=== PATIENT | female | born 1940 | race Caucasian/White ===

== ENCOUNTER 2023-05-17 11:28 | Inpatient (IN) | payer OTHER, BC ==
[2023-05-17] MEDS ORDERED: ACETAMINOPHEN 1000 MG/100 ML BAG IVPB ONE (12:10)
[2023-05-17] MEDS ORDERED: VANCOMYCIN/WATER FOR INJ (PEG) 1,000 MG/200 ML BAG IVPB ONE (13:06)
[2023-05-17] MEDS ORDERED: ACETAMINOPHEN INJECTION 100 ML IVPB ONE (13:06)
[2023-05-17 13:25] LABS: BASO % 0.5 % (0-2.0); EOS % 5.4 % (0-4.5); HEMATOCRIT 32.3 % (32.4-45.2); HEMOGLOBIN 10.3 GM/dL (10.7-15.3); LYMPH % 21.6 % (8-40); MCH 28.1 pg (25.7-33.7); MCHC 31.8 g/dl (32.0-36.0); MEAN CELL VOLUME 88.2 fl (80-96); MEAN PLT VOLUME 8.4 fl (7.5-11.1); NEUT % 62.5 % (42.8-82.8); PLATELET COUNT 384 10^3/uL (134-434); RBC 3.66 M/mm3 (3.60-5.2); RDW 15.8 % (11.6-15.6); WHITE BLOOD COUNT 6.6 K/mm3 (4.0-10.0)
[2023-05-17] MEDS ORDERED: VANCOMYCIN 1 GM in D5W (PRE-DOCKED) 1,000 MG/250 ML (RESTRICTED TO ID ONLY IVPB ONE (13:25)
[2023-05-17 13:34] LABS: INR 1.15 (0.83-1.09); PROTHROMBIN TIME (PATIENT) 13.3 SEC (9.7-13.0)
[2023-05-17 13:39] LABS: POTASSIUM 4.4 mmol/L (3.5-5.1)
[2023-05-17 13:42] LABS: CALCIUM 10.1 mg/dL (8.5-10.1)
[2023-05-17 13:43] LABS: ALBUMIN 3.2 g/dl (3.4-5.0); BLOOD UREA NITROGEN 22.2 mg/dL (7-18); MAGNESIUM 2.3 mg/dL (1.8-2.4)
[2023-05-17 13:46] LABS: CREATININE 0.9 mg/dL (0.55-1.3)
[2023-05-17 13:47] LABS: BILIRUBIN,TOTAL 0.2 mg/dL (0.2-1); TOT PROT 6.9 g/dl (6.4-8.2)
[2023-05-17] MEDS ORDERED: morphine CARPU-JECT 2 MG/1 ML DISP.SYRIN IVPUSH ONE (14:20)
[2023-05-17] MEDS ORDERED: morphine CARPU-JECT 4 MG/1 ML DISP.SYRIN IVPUSH ONE (15:37)
[2023-05-17] MEDS ORDERED: morphine SULFATE 4 MG/ML VIAL ONE (15:38)
[2023-05-17] MEDS ORDERED: ENOXAPARIN NA (PORCINE) 80 MG/0.8 ML DISP.SYRIN SQ SCH (16:00)
[2023-05-17] MEDS: INSULIN SLIDING SCALE (NOVOLOG) 1 VIAL SQ SCH (17:05)
[2023-05-17] MEDS ORDERED: DOXYCYCLINE HYCLATE 100 MG VIAL ONE (17:11)
[2023-05-17] MEDS ORDERED: ENOXAPARIN NA (PORCINE) 80 MG/0.8 ML DISP.SYRIN SQ ONE (17:12)
[2023-05-17] MEDS: DOXYCYCLINE INJECTION 100 MG in DEXTROSE 5%-WATER 100 ML IVPB SCH (17:22)
[2023-05-17] MEDS: ENOXAPARIN NA (PORCINE) 80 MG/0.8 ML DISP.SYRIN SQ SCH (17:22)
[2023-05-17 17:44] VITALS: BMI 33.7
[2023-05-17] MEDS ORDERED: ACETAMINOPHEN 500 MG TABLET (FP) ONE ×2 (18:11→18:14)
[2023-05-17] MEDS: ACETAMINOPHEN 500 MG TABLET (FP) PO PRN (18:29)
[2023-05-17] MEDS: ATORVASTATIN CA 10 MG TABLET (FP) PO SCH (21:43)
[2023-05-18] MEDS: DOXYCYCLINE INJECTION 100 MG in DEXTROSE 5%-WATER 100 ML IVPB SCH ×2 (05:27→17:10)
[2023-05-18] MEDS: ENOXAPARIN NA (PORCINE) 80 MG/0.8 ML DISP.SYRIN SQ SCH (05:28)
[2023-05-18] MEDS: INSULIN SLIDING SCALE (NOVOLOG) 1 VIAL SQ SCH ×3 (06:29→17:06)
[2023-05-18 09:53] LABS: BASO % 0.5 % (0-2.0); EOS % 5.7 % (0-4.5); HEMATOCRIT 31.4 % (32.4-45.2); LYMPH % 19.2 % (8-40); MCH 28.2 pg (25.7-33.7); MEAN CELL VOLUME 88.4 fl (80-96); MEAN PLT VOLUME 9.2 fl (7.5-11.1); NEUT % 65.6 % (42.8-82.8); PLATELET COUNT 386 10^3/uL (134-434); RBC 3.56 M/mm3 (3.60-5.2); RDW 15.6 % (11.6-15.6); WHITE BLOOD COUNT 6.4 K/mm3 (4.0-10.0)
[2023-05-18] MEDS ORDERED: PANTOPRAZOLE 40 MG TABLET PO SCH (10:00)
[2023-05-18] MEDS ORDERED: VANCOMYCIN 1 GM in D5W (PRE-DOCKED) 1,000 MG/250 ML (RESTRICTED TO ID ONLY IVPB ONE (10:00)
[2023-05-18] MEDS ORDERED: amLODIPine BESYLATE 2.5 MG TABLET (FP) PO SCH (10:00)
[2023-05-18] MEDS ORDERED: NEBIVOLOL 10 MG TABLET (FP) PO SCH (10:00)
[2023-05-18 10:20] LABS: BLOOD UREA NITROGEN 15.3 mg/dL (7-18); CALCIUM 10.1 mg/dL (8.5-10.1)
[2023-05-18 10:23] LABS: CREATININE 0.7 mg/dL (0.55-1.3)
[2023-05-18 11:15] LABS: INR 1.19 (0.83-1.09); PROTHROMBIN TIME (PATIENT) 13.8 SEC (9.7-13.0)
[2023-05-18] MEDS: ATORVASTATIN CA 10 MG TABLET (FP) PO SCH (21:42)
[2023-05-19] MEDS: ACETAMINOPHEN 500 MG TABLET (FP) PO PRN (00:13)
[2023-05-19] MEDS ORDERED: ACETAMINOPHEN 1000 MG/100 ML BAG IVPB ONE ×2 (05:04→22:36)
[2023-05-19] MEDS: DOXYCYCLINE INJECTION 100 MG in DEXTROSE 5%-WATER 100 ML IVPB SCH ×2 (05:58→17:38)
[2023-05-19] MEDS: INSULIN SLIDING SCALE (NOVOLOG) 1 VIAL SQ SCH ×3 (06:21→17:07)
[2023-05-19] MEDS ORDERED: BUPIVACAINE HCL/PF 0.5% (5MG/ML) 10 ML VIAL ONE (07:18)
[2023-05-19] MEDS ORDERED: LIDOCAINE HCL 1%, 10 MG/ML (10ML VIAL) MDV ONE ×2 (07:18→08:26)
[2023-05-19] MEDS ORDERED: ONDANSETRON 4 MG/2 ML VIAL IVPUSH PRN ×2 (07:42→09:08)
[2023-05-19] MEDS ORDERED: KETAMINE HCL 500 MG/10 ML VIAL ONE (07:51)
[2023-05-19] MEDS ORDERED: BUPIVACAINE HCL/PF 0.5% (5 MG/ML) 30 ML VIAL IJ ONE (08:10)
[2023-05-19] MEDS ORDERED: LIDOCAINE HCL 1%, 10 MG/ML (20ML VIAL) INF ONE (08:10)
[2023-05-19] MEDS ORDERED: PROPOFOL 20 ML ONE (08:20)
[2023-05-19] MEDS ORDERED: ACETAMINOPHEN 500 MG TABLET (FP) PO PRN (09:08)
[2023-05-19] MEDS ORDERED: ACETAMINOPHEN 325 MG TABLET (FP) ONE (09:34)
[2023-05-19] MEDS: NEBIVOLOL 10 MG TABLET (FP) PO SCH (10:51)
[2023-05-19] MEDS: amLODIPine BESYLATE 2.5 MG TABLET (FP) PO SCH (10:52)
[2023-05-19] MEDS: PANTOPRAZOLE 40 MG TABLET PO SCH (10:52)
[2023-05-19] MEDS: ENOXAPARIN NA (PORCINE) 40 MG/0.4 ML DISP.SYRIN SQ SCH ×2 (11:33→22:10)
[2023-05-19] MEDS: ACETAMINOPHEN WITH CODEINE 300MG/30MG TABLET PO PRN (16:12)
[2023-05-19 16:36] VITALS: RESP 18
[2023-05-19] MEDS ORDERED: oxyCODONE HCL 5 MG TABLET PO ONE (19:24)
[2023-05-19] MEDS: ATORVASTATIN CA 10 MG TABLET (FP) PO SCH (22:10)
[2023-05-19] MEDS ORDERED: MELATONIN 5 MG TABLETS PO ONE (22:38)
[2023-05-20] MEDS ORDERED: oxyCODONE HCL 5 MG TABLET PO ONE (01:23)
[2023-05-20 04:44] LABS: PH,URINE 5.5 (5.0-8.0); URINE APPEARANCE CLEAR; URINE BILIRUBIN NEGATIVE (NEGATIVE); URINE COLOR YELLOW; URINE GLUCOSE (UA) NEGATIVE (NEGATIVE); URINE KETONE NEGATIVE (NEGATIVE); URINE LEUK ESTERASE NEGATIVE (NEGATIVE); URINE NITRITE NEGATIVE (NEGATIVE); URINE PROTEIN NEGATIVE (NEGATIVE); URINE UROBILINOGEN 0.2 mg/dL (0.2-1.0)
[2023-05-20] MEDS: DOXYCYCLINE INJECTION 100 MG in DEXTROSE 5%-WATER 100 ML IVPB SCH ×2 (05:05→18:30)
[2023-05-20] MEDS ORDERED: ACETAMINOPHEN 1000 MG/100 ML BAG IVPB PRN (06:00)
[2023-05-20] MEDS: INSULIN SLIDING SCALE (NOVOLOG) 1 VIAL SQ SCH ×3 (07:14→17:46)
[2023-05-20 09:37] LABS: HEMATOCRIT 33.1 % (32.4-45.2); HEMOGLOBIN 10.4 GM/dL (10.7-15.3); MCH 27.6 pg (25.7-33.7); MCHC 31.5 g/dl (32.0-36.0); MEAN CELL VOLUME 87.6 fl (80-96); MEAN PLT VOLUME 9.1 fl (7.5-11.1); PLATELET COUNT 409 10^3/uL (134-434); RBC 3.78 M/mm3 (3.60-5.2); RDW 16.2 % (11.6-15.6); WHITE BLOOD COUNT 7.6 K/mm3 (4.0-10.0)
[2023-05-20 10:01] LABS: POTASSIUM 4.1 mmol/L (3.5-5.1)
[2023-05-20 10:08] LABS: BLOOD UREA NITROGEN 20.3 mg/dL (7-18)
[2023-05-20 10:10] LABS: CALCIUM 10.3 mg/dL (8.5-10.1)
[2023-05-20 10:12] LABS: CREATININE 0.9 mg/dL (0.55-1.3)
[2023-05-20] MEDS: ENOXAPARIN NA (PORCINE) 80 MG/0.8 ML DISP.SYRIN SQ SCH ×2 (10:16→21:27)
[2023-05-20] MEDS: NEBIVOLOL 10 MG TABLET (FP) PO SCH (10:17)
[2023-05-20] MEDS: amLODIPine BESYLATE 2.5 MG TABLET (FP) PO SCH (10:17)
[2023-05-20] MEDS: PANTOPRAZOLE 40 MG TABLET PO SCH (10:17)
[2023-05-20] MEDS: ACETAMINOPHEN WITH CODEINE 300MG/30MG TABLET PO PRN ×2 (10:37→18:30)
[2023-05-20 10:41] LABS: ANISOCYTOSIS 0; HELMET CELLS 0; HOWELL-JOLLY BODIES 0; MACROCYTOSIS 0; OVALOCYTE 0; ROULEAU 0; SICKELED CELLS 0; TARGET CELLS 0; TEAR DROP CELLS 0; TOXIC GRANULATION 0
[2023-05-20] MEDS: ATORVASTATIN CA 10 MG TABLET (FP) PO SCH (21:27)
[2023-05-21] MEDS ORDERED: oxyCODONE HCL 5 MG TABLET PO ONE (00:38)
[2023-05-21] MEDS ORDERED: ACETAMINOPHEN 1000 MG/100 ML BAG IVPB ONE (00:40)
[2023-05-21] MEDS: DOXYCYCLINE INJECTION 100 MG in DEXTROSE 5%-WATER 100 ML IVPB SCH (05:06)
[2023-05-21] MEDS: INSULIN SLIDING SCALE (NOVOLOG) 1 VIAL SQ SCH ×3 (06:25→16:44)
[2023-05-21] MEDS: NEBIVOLOL 10 MG TABLET (FP) PO SCH (10:10)
[2023-05-21] MEDS: ENOXAPARIN NA (PORCINE) 80 MG/0.8 ML DISP.SYRIN SQ SCH ×2 (10:10→21:05)
[2023-05-21] MEDS: PANTOPRAZOLE 40 MG TABLET PO SCH (10:10)
[2023-05-21] MEDS: amLODIPine BESYLATE 5 MG TABLET (FP) PO SCH (10:10)
[2023-05-21] MEDS: ACETAMINOPHEN WITH CODEINE 300MG/30MG TABLET PO PRN ×2 (16:47→23:04)
[2023-05-21] MEDS: ATORVASTATIN CA 10 MG TABLET (FP) PO SCH (21:05)
[2023-05-22] MEDS: INSULIN SLIDING SCALE (NOVOLOG) 1 VIAL SQ SCH ×2 (06:16→12:15)
[2023-05-22] MEDS: NEBIVOLOL 10 MG TABLET (FP) PO SCH (09:57)
[2023-05-22] MEDS: amLODIPine BESYLATE 5 MG TABLET (FP) PO SCH (09:57)
[2023-05-22] MEDS: PANTOPRAZOLE 40 MG TABLET PO SCH (09:58)
[2023-05-22] MEDS: ENOXAPARIN NA (PORCINE) 80 MG/0.8 ML DISP.SYRIN SQ SCH (09:58)
[2023-05-22 13:09] VITALS: BP 155/55; PULSE 69; TEMP 98.3
== END 2023-05-22 14:34 | DRG 256 ==
LOC: JER 11:28 → JERBED 12:46 → J5S 21:07
PROVIDERS: ADMIT Internal Medicine; ATTEND Family Medicine
PROC: 0Y6P0Z1 Detachment at Right 1st Toe, High, Open Approach (ICD-10-PCS; principal; 2023-05-19 08:00)
DX: E11.52 Type 2 diabetes mellitus with diabetic peripheral angiopathy with gangrene (principal); I96 Gangrene, not elsewhere classified; L03.115 Cellulitis of right lower limb; I10 Essential (primary) hypertension; E78.5 Hyperlipidemia, unspecified; E11.621 Type 2 diabetes mellitus with foot ulcer; E78.00 Pure hypercholesterolemia, unspecified; E83.52 Hypercalcemia; E86.0 Dehydration
CPT/HCPCS: 36415; 71045-TC-FY; 73630-TC-RT-FY; 80048; 80053; 81003; 82310; 82962; 83036; 83540; 83550; 83735; 83970; 85025; 85027; 85610; 86850; 86900; 86901; 87040; 87635; 88305-TC; 88311-TC; 93005; 93010; 93971-TC; 94760; 97116-GP; 97162-GP; 99285-25

== ENCOUNTER 2023-08-04 13:13 | Inpatient (IN) | payer OTHER, BC ==
[2023-08-04] MEDS ORDERED: VANCOMYCIN 1,000 MG in DEXTROSE 5%-WATER - 250 ML IVPB ONE (13:56)
[2023-08-04] MEDS ORDERED: PIPERACILLIN/TAZOB 4.5 GM 4.5 GM in DEXTROSE 5%-WATER 100 ML IVPB ONE (13:56)
[2023-08-04] MEDS ORDERED: morphine CARPU-JECT 4 MG/1 ML DISP.SYRIN IVPUSH ONE (14:32)
[2023-08-04] MEDS ORDERED: morphine SULFATE 4 MG/ML VIAL ONE (14:38)
[2023-08-04] MEDS ORDERED: PIPERACILLIN/TAZOB 4.5 GM 4.5 GM/100 ML BAG IVPB ONE (14:38)
[2023-08-04] MEDS ORDERED: VANCOMYCIN 1 GRAM (PRE-DOCKED) 1,000 MG/250 ML BAG IVPB ONE (14:46)
[2023-08-04 14:55] LABS: BASO % 0.6 % (0-2.0); EOS % 8.2 % (0-4.5); HEMATOCRIT 29.3 % (32.4-45.2); HEMOGLOBIN 9.4 GM/dL (10.7-15.3); LYMPH % 19.3 % (8-40); MCH 27.1 pg (25.7-33.7); MCHC 31.9 g/dl (32.0-36.0); MONO % 9.4 % (3.8-10.2); NEUT % 62.5 % (42.8-82.8); PLATELET COUNT 426 10^3/uL (134-434); RBC 3.45 M/mm3 (3.60-5.2); RDW 17.5 % (11.6-15.6); WHITE BLOOD COUNT 9.2 K/mm3 (4.0-10.0)
[2023-08-04 15:02] LABS: INR 1.79 (0.83-1.09); PROTHROMBIN TIME (PATIENT) 20.7 SEC (9.7-13.0)
[2023-08-04 15:05] LABS: ACTIVATED PTT 38.4 SECONDS (25.2-36.5)
[2023-08-04 15:14] LABS: CALCIUM 9.3 mg/dL (8.5-10.1)
[2023-08-04 15:15] LABS: ALBUMIN 3.2 g/dl (3.4-5.0)
[2023-08-04 15:17] LABS: CREATININE 1.1 mg/dL (0.55-1.3)
[2023-08-04 15:18] LABS: BLOOD UREA NITROGEN 24.4 mg/dL (7-18)
[2023-08-04 15:19] LABS: BILIRUBIN,TOTAL 0.2 mg/dL (0.2-1)
[2023-08-04 15:36] LABS: ERYTHROCYTE SEDIMENTATION RATE 51 mm/hr (0-30)
[2023-08-04] MEDS ORDERED: GABAPENTIN 100 MG CAPSULE PO ONE (15:42)
[2023-08-04] MEDS ORDERED: HYDROmorphone HCl 2 MG/ML VIAL IVPUSH ONE (16:09)
[2023-08-04] MEDS ORDERED: HYDROmorphone HCl 2 MG/ML VIAL ONE (16:12)
[2023-08-04] MEDS: PIPERACILLIN/TAZOB 3.375 GM 3.375 GM in DEXTROSE 5%-WATER - 50 ML IVPB SCH (18:01)
[2023-08-04] MEDS ORDERED: SENNOSIDES 8.6MG TABLET (FP) PO ONE (21:25)
[2023-08-04] MEDS ORDERED: GABAPENTIN 100 MG CAPSULE ONE (21:25)
[2023-08-04] MEDS ORDERED: ATORVASTATIN CA 20 MG TABLET (FP) ONE (21:25)
[2023-08-04] MEDS ORDERED: ENOXAPARIN NA (PORCINE) 80 MG/0.8 ML DISP.SYRIN SQ ONE (21:26)
[2023-08-04] MEDS: GABAPENTIN 100 MG CAPSULE PO SCH (21:30)
[2023-08-04] MEDS: ATORVASTATIN CA 10 MG TABLET (FP) PO SCH (21:30)
[2023-08-04] MEDS: ENOXAPARIN NA (PORCINE) 80 MG/0.8 ML DISP.SYRIN SQ SCH (21:30)
[2023-08-04] MEDS: SENNOSIDES 8.6MG TABLET (FP) PO SCH (21:30)
[2023-08-04] MEDS ORDERED: ACETAMINOPHEN 1000 MG/100 ML BAG IVPB ONE (23:39)
[2023-08-05] MEDS: PIPERACILLIN/TAZOB 3.375 GM 3.375 GM in DEXTROSE 5%-WATER - 50 ML IVPB SCH ×3 (03:39→13:54)
[2023-08-05] MEDS ORDERED: PIPERACILLIN/TAZOB 3.375 GM 3.375 GM/50 ML BAG IVPB ONE (03:40)
[2023-08-05] MEDS: GABAPENTIN 100 MG CAPSULE PO SCH ×3 (05:52→21:39)
[2023-08-05] MEDS ORDERED: GABAPENTIN 100 MG CAPSULE ONE (05:53)
[2023-08-05 08:11] LABS: ALBUMIN 3.1 g/dl (3.4-5.0); BLOOD UREA NITROGEN 19.9 mg/dL (7-18); CALCIUM 9.1 mg/dL (8.5-10.1)
[2023-08-05 08:15] LABS: CREATININE 0.9 mg/dL (0.55-1.3)
[2023-08-05 08:16] LABS: BILIRUBIN,TOTAL 0.3 mg/dL (0.2-1); TOT PROT 6.4 g/dl (6.4-8.2)
[2023-08-05 08:21] LABS: BASO % 0.6 % (0-2.0); EOS % 8.6 % (0-4.5); HEMATOCRIT 28.7 % (32.4-45.2); HEMOGLOBIN 9.3 GM/dL (10.7-15.3); LYMPH % 27.2 % (8-40); MCH 27.7 pg (25.7-33.7); MCHC 32.3 g/dl (32.0-36.0); MEAN CELL VOLUME 85.9 fl (80-96); MEAN PLT VOLUME 8.5 fl (7.5-11.1); NEUT % 53.6 % (42.8-82.8); PLATELET COUNT 424 10^3/uL (134-434); RBC 3.34 M/mm3 (3.60-5.2); RDW 17.4 % (11.6-15.6); WHITE BLOOD COUNT 7.3 K/mm3 (4.0-10.0)
[2023-08-05] MEDS: ENOXAPARIN NA (PORCINE) 80 MG/0.8 ML DISP.SYRIN SQ SCH ×2 (11:13→21:45)
[2023-08-05] MEDS: amLODIPine BESYLATE 2.5 MG TABLET (FP) PO SCH (11:13)
[2023-08-05] MEDS: PANTOPRAZOLE 40 MG TABLET PO SCH (11:13)
[2023-08-05] MEDS: DULoxetine HCL 30 MG CAPSULE.DR PO SCH (11:13)
[2023-08-05 11:57] VITALS: BMI 35.7
[2023-08-05] MEDS ORDERED: morphine CARPU-JECT 2 MG/1 ML DISP.SYRIN IM PRN (13:40)
[2023-08-05] MEDS: COLLAGENASE CLOSTRIDIUM HIST. 30 GRAMS TUBE TP SCH (14:08)
[2023-08-05] MEDS: VANCOMYCIN/WATER FOR INJ (PEG) 1,000 MG/200 ML BAG IVPB SCH (16:05)
[2023-08-05] MEDS: INSULIN SLIDING SCALE (NOVOLOG) 1 VIAL SQ SCH ×2 (18:22→21:51)
[2023-08-05] MEDS: AZTREONAM 2 GM in DEXTROSE 5%-WATER 100 ML IVPB SCH (18:51)
[2023-08-05] MEDS: ATORVASTATIN CA 10 MG TABLET (FP) PO SCH (21:39)
[2023-08-05] MEDS: SENNOSIDES 8.6MG TABLET (FP) PO SCH (21:39)
[2023-08-06] MEDS: AZTREONAM 2 GM in DEXTROSE 5%-WATER 100 ML IVPB SCH ×3 (02:22→18:06)
[2023-08-06] MEDS: GABAPENTIN 100 MG CAPSULE PO SCH ×3 (06:46→22:34)
[2023-08-06] MEDS: INSULIN SLIDING SCALE (NOVOLOG) 1 VIAL SQ SCH ×4 (06:53→22:35)
[2023-08-06] MEDS: ACETAMINOPHEN 325 MG TABLET (FP) PO PRN (07:07)
[2023-08-06] MEDS: ENOXAPARIN NA (PORCINE) 80 MG/0.8 ML DISP.SYRIN SQ SCH (09:12)
[2023-08-06] MEDS: PANTOPRAZOLE 40 MG TABLET PO SCH (10:34)
[2023-08-06] MEDS: amLODIPine BESYLATE 2.5 MG TABLET (FP) PO SCH (10:34)
[2023-08-06] MEDS: DULoxetine HCL 30 MG CAPSULE.DR PO SCH (10:34)
[2023-08-06] MEDS: COLLAGENASE CLOSTRIDIUM HIST. 30 GRAMS TUBE TP SCH (10:35)
[2023-08-06] MEDS ORDERED: INSULIN (NOVOLOG) ASPART 100 UNITS/ML 10ML VIAL ONE (12:20)
[2023-08-06] MEDS: VANCOMYCIN/WATER FOR INJ (PEG) 1,000 MG/200 ML BAG IVPB SCH (13:46)
[2023-08-06] MEDS: AMINO ACIDS/PROTEIN HYDROLYS 30 ML LIQUID.PKT PO SCH (18:07)
[2023-08-06] MEDS: ATORVASTATIN CA 10 MG TABLET (FP) PO SCH (22:34)
[2023-08-06] MEDS: SENNOSIDES 8.6MG TABLET (FP) PO SCH (22:34)
[2023-08-07] MEDS: AZTREONAM 2 GM in DEXTROSE 5%-WATER 100 ML IVPB SCH ×3 (02:50→17:38)
[2023-08-07] MEDS: GABAPENTIN 100 MG CAPSULE PO SCH ×3 (06:48→21:32)
[2023-08-07] MEDS: INSULIN SLIDING SCALE (NOVOLOG) 1 VIAL SQ SCH ×4 (07:30→21:40)
[2023-08-07] MEDS: AMINO ACIDS/PROTEIN HYDROLYS 30 ML LIQUID.PKT PO SCH ×2 (08:03→17:38)
[2023-08-07] MEDS: ZINC SULFATE 220 MG CAPSULE (FP) PO SCH (09:24)
[2023-08-07] MEDS: ASCORBIC ACID 500 MG TABLET (FP) PO SCH (09:24)
[2023-08-07] MEDS: PANTOPRAZOLE 40 MG TABLET PO SCH (09:24)
[2023-08-07] MEDS: amLODIPine BESYLATE 2.5 MG TABLET (FP) PO SCH (09:25)
[2023-08-07] MEDS: MULTIVITAMINS (DAILY MVI) TABLET (FP) PO SCH (09:25)
[2023-08-07] MEDS: DULoxetine HCL 30 MG CAPSULE.DR PO SCH (09:25)
[2023-08-07 09:51] LABS: BASO % 1.3 % (0-2.0); EOS % 7.9 % (0-4.5); HEMATOCRIT 28.6 % (32.4-45.2); HEMOGLOBIN 9.1 GM/dL (10.7-15.3); MCH 27.5 pg (25.7-33.7); MEAN PLT VOLUME 8.4 fl (7.5-11.1); MONO % 7.9 % (3.8-10.2); NEUT % 68.9 % (42.8-82.8); PLATELET COUNT 447 10^3/uL (134-434); RBC 3.32 M/mm3 (3.60-5.2); RDW 17.1 % (11.6-15.6)
[2023-08-07 09:59] LABS: INR 1.17 (0.83-1.09); PROTHROMBIN TIME (PATIENT) 13.6 SEC (9.7-13.0)
[2023-08-07] MEDS: COLLAGENASE CLOSTRIDIUM HIST. 30 GRAMS TUBE TP SCH (10:20)
[2023-08-07 10:22] LABS: POTASSIUM 4.2 mmol/L (3.5-5.1)
[2023-08-07 10:27] LABS: IRON SERUM 24 ug/dL (50-175); TOTAL IRON BINDING CAPACITY 257 ug/dL (250-450)
[2023-08-07 10:30] LABS: ALBUMIN 2.8 g/dl (3.4-5.0); BLOOD UREA NITROGEN 20.3 mg/dL (7-18); CALCIUM 9.4 mg/dL (8.5-10.1); CREATININE 0.8 mg/dL (0.55-1.3)
[2023-08-07 10:33] LABS: BILIRUBIN,TOTAL 0.2 mg/dL (0.2-1)
[2023-08-07 10:36] LABS: TOT PROT 6.6 g/dl (6.4-8.2)
[2023-08-07] MEDS ORDERED: INSULIN (NOVOLOG) ASPART 100 UNITS/ML 10ML VIAL ONE (11:10)
[2023-08-07] MEDS ORDERED: IRON SUCROSE INJECTION 200 MG in SODIUM CHLORIDE 90 ML IVPB ONE (12:00)
[2023-08-07] MEDS: VANCOMYCIN/WATER FOR INJ (PEG) 1,000 MG/200 ML BAG IVPB SCH (13:46)
[2023-08-07] MEDS: ACETAMINOPHEN 325 MG TABLET (FP) PO PRN ×2 (13:59→20:15)
[2023-08-07] MEDS: PATIENT'S OWN MEDICATION (NON-FORMULARY) (Empagliflozin [Jardiance] 10 MG Tablet) PO SCH (14:58)
[2023-08-07] MEDS: SENNOSIDES 8.6MG TABLET (FP) PO SCH (21:33)
[2023-08-07] MEDS: ATORVASTATIN CA 10 MG TABLET (FP) PO SCH (21:33)
[2023-08-08] MEDS: AZTREONAM 2 GM in DEXTROSE 5%-WATER 100 ML IVPB SCH ×3 (02:07→17:08)
[2023-08-08] MEDS: GABAPENTIN 100 MG CAPSULE PO SCH ×3 (05:01→22:16)
[2023-08-08] MEDS: INSULIN SLIDING SCALE (NOVOLOG) 1 VIAL SQ SCH ×4 (07:04→22:16)
[2023-08-08] MEDS ORDERED: LIDOCAINE HCL 1%, 10 MG/ML (20ML VIAL) ONE (07:37)
[2023-08-08] MEDS ORDERED: VANCOMYCIN 1,000 MG VIAL (RESTRICTED TO ID ONLY) ONE (07:37)
[2023-08-08] MEDS ORDERED: GENTAMICIN SO4 80 MG/2 ML VIAL ONE (07:37)
[2023-08-08] MEDS ORDERED: BUPIVACAINE HCL/PF 0.5% (5MG/ML) 10 ML VIAL ONE (07:37)
[2023-08-08] MEDS ORDERED: BACITRACIN ZINC 15 GM TUBE TOPICAL OINTMENT ONE (07:38)
[2023-08-08] MEDS: DULoxetine HCL 30 MG CAPSULE.DR PO SCH (09:00)
[2023-08-08] MEDS: PATIENT'S OWN MEDICATION (NON-FORMULARY) (Empagliflozin [Jardiance] 10 MG Tablet) PO SCH (09:01)
[2023-08-08] MEDS: ZINC SULFATE 220 MG CAPSULE (FP) PO SCH (09:01)
[2023-08-08] MEDS: PANTOPRAZOLE 40 MG TABLET PO SCH (09:01)
[2023-08-08] MEDS: amLODIPine BESYLATE 2.5 MG TABLET (FP) PO SCH (09:01)
[2023-08-08] MEDS: MULTIVITAMINS (DAILY MVI) TABLET (FP) PO SCH (09:02)
[2023-08-08] MEDS: ASCORBIC ACID 500 MG TABLET (FP) PO SCH (09:02)
[2023-08-08] MEDS ORDERED: MIDAZOLAM HCL 2 MG/2 ML SINGLE DOSE VIAL ONE (09:49)
[2023-08-08] MEDS: AMINO ACIDS/PROTEIN HYDROLYS 30 ML LIQUID.PKT PO SCH ×2 (10:23→16:59)
[2023-08-08] MEDS: COLLAGENASE CLOSTRIDIUM HIST. 30 GRAMS TUBE TP SCH (10:26)
[2023-08-08] MEDS ORDERED: LIDOCAINE HCL 1%, 10 MG/ML (20ML VIAL) INF ONE ×2 (10:35)
[2023-08-08] MEDS ORDERED: BUPIVACAINE HCL/PF 0.5% (5MG/ML) 10 ML VIAL IJ ONE ×2 (10:35)
[2023-08-08] MEDS ORDERED: LACTATED RINGERS SOLUTION 1,000 ML IV SCH (12:00)
[2023-08-08] MEDS: DOCUSATE SODIUM 100 MG CAPSULE (FP) PO SCH ×2 (13:48→22:16)
[2023-08-08] MEDS: VANCOMYCIN/WATER FOR INJ (PEG) 1,000 MG/200 ML BAG IVPB SCH (13:51)
[2023-08-08] MEDS ORDERED: DOCUSATE SODIUM 100 MG CAPSULE (FP) PO SCH (14:00)
[2023-08-08] MEDS ORDERED: INSULIN (NOVOLOG) ASPART 100 UNITS/ML 10ML VIAL ONE (22:10)
[2023-08-08] MEDS: SENNOSIDES 8.6MG TABLET (FP) PO SCH (22:15)
[2023-08-08] MEDS: ATORVASTATIN CA 10 MG TABLET (FP) PO SCH (22:15)
[2023-08-09] MEDS: AZTREONAM 2 GM in DEXTROSE 5%-WATER 100 ML IVPB SCH ×3 (02:31→18:24)
[2023-08-09] MEDS: GABAPENTIN 100 MG CAPSULE PO SCH ×3 (07:35→21:09)
[2023-08-09] MEDS: INSULIN SLIDING SCALE (NOVOLOG) 1 VIAL SQ SCH ×4 (07:35→21:22)
[2023-08-09] MEDS: DOCUSATE SODIUM 100 MG CAPSULE (FP) PO SCH ×3 (07:35→21:09)
[2023-08-09] MEDS: ACETAMINOPHEN 325 MG TABLET (FP) PO PRN ×2 (10:16→21:10)
[2023-08-09] MEDS: MULTIVITAMINS (DAILY MVI) TABLET (FP) PO SCH (10:18)
[2023-08-09] MEDS: DULoxetine HCL 30 MG CAPSULE.DR PO SCH (10:18)
[2023-08-09] MEDS: ZINC SULFATE 220 MG CAPSULE (FP) PO SCH (10:18)
[2023-08-09] MEDS: PANTOPRAZOLE 40 MG TABLET PO SCH (10:19)
[2023-08-09] MEDS: amLODIPine BESYLATE 2.5 MG TABLET (FP) PO SCH (10:19)
[2023-08-09] MEDS: AMINO ACIDS/PROTEIN HYDROLYS 30 ML LIQUID.PKT PO SCH ×2 (10:19→18:26)
[2023-08-09] MEDS: ASCORBIC ACID 500 MG TABLET (FP) PO SCH (10:19)
[2023-08-09] MEDS: PATIENT'S OWN MEDICATION (NON-FORMULARY) (Empagliflozin [Jardiance] 10 MG) PO SCH (10:46)
[2023-08-09] MEDS ORDERED: INSULIN (NOVOLOG) ASPART 100 UNITS/ML 10ML VIAL ONE (11:44)
[2023-08-09] MEDS: COLLAGENASE CLOSTRIDIUM HIST. 30 GRAMS TUBE TP SCH (12:14)
[2023-08-09] MEDS: VANCOMYCIN/WATER FOR INJ (PEG) 1,000 MG/200 ML BAG IVPB SCH (14:15)
[2023-08-09] MEDS: ATORVASTATIN CA 10 MG TABLET (FP) PO SCH (21:09)
[2023-08-09] MEDS: SENNOSIDES 8.6MG TABLET (FP) PO SCH (21:09)
[2023-08-10] MEDS: AZTREONAM 2 GM in DEXTROSE 5%-WATER 100 ML IVPB SCH ×3 (01:41→17:34)
[2023-08-10] MEDS: DOCUSATE SODIUM 100 MG CAPSULE (FP) PO SCH ×3 (06:02→21:02)
[2023-08-10] MEDS: GABAPENTIN 100 MG CAPSULE PO SCH ×3 (06:02→21:02)
[2023-08-10] MEDS: INSULIN SLIDING SCALE (NOVOLOG) 1 VIAL SQ SCH ×4 (06:07→21:44)
[2023-08-10] MEDS: AMINO ACIDS/PROTEIN HYDROLYS 30 ML LIQUID.PKT PO SCH ×2 (07:56→17:00)
[2023-08-10 08:29] LABS: BASO % 0.5 % (0-2.0); EOS % 3.9 % (0-4.5); HEMATOCRIT 27.7 % (32.4-45.2); HEMOGLOBIN 8.8 GM/dL (10.7-15.3); LYMPH % 14.3 % (8-40); MCH 27.1 pg (25.7-33.7); MCHC 31.7 g/dl (32.0-36.0); MEAN CELL VOLUME 85.6 fl (80-96); MEAN PLT VOLUME 8.1 fl (7.5-11.1); MONO % 11.4 % (3.8-10.2); NEUT % 69.9 % (42.8-82.8); PLATELET COUNT 468 10^3/uL (134-434); POTASSIUM 3.8 mmol/L (3.5-5.1); RBC 3.23 M/mm3 (3.60-5.2); WHITE BLOOD COUNT 8.9 K/mm3 (4.0-10.0)
[2023-08-10 08:31] LABS: ALBUMIN 2.6 g/dl (3.4-5.0); BLOOD UREA NITROGEN 27.2 mg/dL (7-18); CALCIUM 9.3 mg/dL (8.5-10.1)
[2023-08-10 08:35] LABS: CREATININE 0.6 mg/dL (0.55-1.3)
[2023-08-10 08:36] LABS: BILIRUBIN,TOTAL 0.2 mg/dL (0.2-1); TOT PROT 6.2 g/dl (6.4-8.2)
[2023-08-10] MEDS: ZINC SULFATE 220 MG CAPSULE (FP) PO SCH (09:58)
[2023-08-10] MEDS: MULTIVITAMINS (DAILY MVI) TABLET (FP) PO SCH (09:58)
[2023-08-10] MEDS: DULoxetine HCL 30 MG CAPSULE.DR PO SCH (09:58)
[2023-08-10] MEDS: ACETAMINOPHEN 325 MG TABLET (FP) PO PRN ×2 (09:58→19:43)
[2023-08-10] MEDS: amLODIPine BESYLATE 2.5 MG TABLET (FP) PO SCH (09:58)
[2023-08-10] MEDS: COLLAGENASE CLOSTRIDIUM HIST. 30 GRAMS TUBE TP SCH (09:58)
[2023-08-10] MEDS: PANTOPRAZOLE 40 MG TABLET PO SCH (09:58)
[2023-08-10] MEDS: ASCORBIC ACID 500 MG TABLET (FP) PO SCH (09:58)
[2023-08-10] MEDS: ENOXAPARIN NA (PORCINE) 40 MG/0.4 ML DISP.SYRIN SQ SCH ×2 (09:59→21:02)
[2023-08-10] MEDS: PATIENT'S OWN MEDICATION (NON-FORMULARY) (Empagliflozin [Jardiance] 10 MG) PO SCH (10:00)
[2023-08-10] MEDS ORDERED: INSULIN (NOVOLOG) ASPART 100 UNITS/ML 10ML VIAL ONE ×2 (11:33→21:14)
[2023-08-10] MEDS: VANCOMYCIN/WATER FOR INJ (PEG) 1,000 MG/200 ML BAG IVPB SCH (14:23)
[2023-08-10] MEDS: SENNOSIDES 8.6MG TABLET (FP) PO SCH (21:02)
[2023-08-10] MEDS: ATORVASTATIN CA 10 MG TABLET (FP) PO SCH (21:02)
[2023-08-11] MEDS: AZTREONAM 2 GM in DEXTROSE 5%-WATER 100 ML IVPB SCH ×3 (01:32→17:47)
[2023-08-11] MEDS: GABAPENTIN 100 MG CAPSULE PO SCH ×3 (06:14→22:34)
[2023-08-11] MEDS: DOCUSATE SODIUM 100 MG CAPSULE (FP) PO SCH ×3 (06:15→22:35)
[2023-08-11] MEDS: INSULIN SLIDING SCALE (NOVOLOG) 1 VIAL SQ SCH ×4 (06:40→22:34)
[2023-08-11] MEDS: AMINO ACIDS/PROTEIN HYDROLYS 30 ML LIQUID.PKT PO SCH ×2 (09:00→17:47)
[2023-08-11] MEDS: amLODIPine BESYLATE 2.5 MG TABLET (FP) PO SCH (09:01)
[2023-08-11] MEDS: DULoxetine HCL 30 MG CAPSULE.DR PO SCH (09:01)
[2023-08-11] MEDS: PANTOPRAZOLE 40 MG TABLET PO SCH (09:01)
[2023-08-11] MEDS: MULTIVITAMINS (DAILY MVI) TABLET (FP) PO SCH (09:01)
[2023-08-11] MEDS: ASCORBIC ACID 500 MG TABLET (FP) PO SCH (09:01)
[2023-08-11] MEDS: ZINC SULFATE 220 MG CAPSULE (FP) PO SCH (09:01)
[2023-08-11] MEDS: ENOXAPARIN NA (PORCINE) 40 MG/0.4 ML DISP.SYRIN SQ SCH ×2 (09:01→22:35)
[2023-08-11] MEDS: PATIENT'S OWN MEDICATION (NON-FORMULARY) (Empagliflozin [Jardiance] 10 MG) PO SCH (09:02)
[2023-08-11] MEDS: COLLAGENASE CLOSTRIDIUM HIST. 30 GRAMS TUBE TP SCH (09:03)
[2023-08-11] MEDS ORDERED: INSULIN (NOVOLOG) ASPART 100 UNITS/ML 10ML VIAL ONE ×2 (11:30→22:00)
[2023-08-11] MEDS: ACETAMINOPHEN 325 MG TABLET (FP) PO PRN ×2 (12:25→18:35)
[2023-08-11] MEDS: VANCOMYCIN/WATER FOR INJ (PEG) 1,000 MG/200 ML BAG IVPB SCH ×3 (13:38→19:11)
[2023-08-11] MEDS: oxyCODONE HCL 5 MG TABLET PO PRN ×2 (16:29→22:35)
[2023-08-11] MEDS: ATORVASTATIN CA 10 MG TABLET (FP) PO SCH (22:34)
[2023-08-11] MEDS: SENNOSIDES 8.6MG TABLET (FP) PO SCH (22:34)
[2023-08-12] MEDS: AZTREONAM 2 GM in DEXTROSE 5%-WATER 100 ML IVPB SCH ×3 (01:39→17:55)
[2023-08-12] MEDS: oxyCODONE HCL 5 MG TABLET PO PRN ×2 (05:20→10:54)
[2023-08-12] MEDS: GABAPENTIN 100 MG CAPSULE PO SCH ×3 (05:20→23:16)
[2023-08-12] MEDS: DOCUSATE SODIUM 100 MG CAPSULE (FP) PO SCH ×3 (05:20→23:15)
[2023-08-12] MEDS: INSULIN SLIDING SCALE (NOVOLOG) 1 VIAL SQ SCH ×4 (06:37→23:17)
[2023-08-12] MEDS ORDERED: WARFARIN NA 5 MG TABLET PO ONE (08:50)
[2023-08-12 10:29] LABS: INR 1.1 (0.83-1.09); PROTHROMBIN TIME (PATIENT) 12.7 SEC (9.7-13.0)
[2023-08-12] MEDS: AMINO ACIDS/PROTEIN HYDROLYS 30 ML LIQUID.PKT PO SCH ×2 (10:45→17:50)
[2023-08-12] MEDS: PANTOPRAZOLE 40 MG TABLET PO SCH (10:45)
[2023-08-12] MEDS: DULoxetine HCL 30 MG CAPSULE.DR PO SCH (10:46)
[2023-08-12] MEDS: ENOXAPARIN NA (PORCINE) 40 MG/0.4 ML DISP.SYRIN SQ SCH (10:46)
[2023-08-12] MEDS: ZINC SULFATE 220 MG CAPSULE (FP) PO SCH (10:46)
[2023-08-12] MEDS: amLODIPine BESYLATE 2.5 MG TABLET (FP) PO SCH (10:46)
[2023-08-12] MEDS: ASCORBIC ACID 500 MG TABLET (FP) PO SCH (10:46)
[2023-08-12] MEDS: MULTIVITAMINS (DAILY MVI) TABLET (FP) PO SCH (10:46)
[2023-08-12] MEDS: PATIENT'S OWN MEDICATION (NON-FORMULARY) (Empagliflozin [Jardiance] 10 MG) PO SCH (10:52)
[2023-08-12] MEDS ORDERED: INSULIN (NOVOLOG) ASPART 100 UNITS/ML 10ML VIAL ONE ×2 (12:03→19:44)
[2023-08-12] MEDS: ACETAMINOPHEN 325 MG TABLET (FP) PO PRN (13:19)
[2023-08-12] MEDS: COLLAGENASE CLOSTRIDIUM HIST. 30 GRAMS TUBE TP SCH (15:50)
[2023-08-12] MEDS ORDERED: ENOXAPARIN NA (PORCINE) 80 MG/0.8 ML DISP.SYRIN SQ ONE (16:00)
[2023-08-12] MEDS: SENNOSIDES 8.6MG TABLET (FP) PO SCH (23:16)
[2023-08-12] MEDS: ATORVASTATIN CA 10 MG TABLET (FP) PO SCH (23:16)
[2023-08-13] MEDS: morphine SULFATE 4 MG/ML VIAL IVPUSH PRN ×2 (00:07→22:47)
[2023-08-13] MEDS: ACETAMINOPHEN 325 MG TABLET (FP) PO PRN ×4 (02:34→23:48)
[2023-08-13] MEDS: AZTREONAM 2 GM in DEXTROSE 5%-WATER 100 ML IVPB SCH ×3 (02:38→17:04)
[2023-08-13] MEDS: DOCUSATE SODIUM 100 MG CAPSULE (FP) PO SCH ×3 (05:30→21:53)
[2023-08-13] MEDS: GABAPENTIN 100 MG CAPSULE PO SCH ×3 (05:31→21:53)
[2023-08-13] MEDS: INSULIN SLIDING SCALE (NOVOLOG) 1 VIAL SQ SCH ×4 (06:03→21:52)
[2023-08-13] MEDS: MULTIVITAMINS (DAILY MVI) TABLET (FP) PO SCH (09:28)
[2023-08-13] MEDS: ASCORBIC ACID 500 MG TABLET (FP) PO SCH (09:29)
[2023-08-13] MEDS: PANTOPRAZOLE 40 MG TABLET PO SCH (09:29)
[2023-08-13] MEDS: DULoxetine HCL 30 MG CAPSULE.DR PO SCH (09:29)
[2023-08-13] MEDS: ZINC SULFATE 220 MG CAPSULE (FP) PO SCH (09:31)
[2023-08-13] MEDS: amLODIPine BESYLATE 2.5 MG TABLET (FP) PO SCH (09:31)
[2023-08-13] MEDS: PATIENT'S OWN MEDICATION (NON-FORMULARY) (Empagliflozin [Jardiance] 10 MG) PO SCH (09:32)
[2023-08-13] MEDS: COLLAGENASE CLOSTRIDIUM HIST. 30 GRAMS TUBE TP SCH (09:32)
[2023-08-13 10:07] LABS: HEMATOCRIT 28.8 % (32.4-45.2); HEMOGLOBIN 9.3 GM/dL (10.7-15.3); MCH 27.7 pg (25.7-33.7); MCHC 32.5 g/dl (32.0-36.0); MEAN CELL VOLUME 85.3 fl (80-96); PLATELET COUNT 549 10^3/uL (134-434); RBC 3.37 M/mm3 (3.60-5.2); RDW 17.8 % (11.6-15.6); WHITE BLOOD COUNT 9.1 K/mm3 (4.0-10.0)
[2023-08-13 10:12] LABS: INR 1.45 (0.83-1.09); PROTHROMBIN TIME (PATIENT) 16.8 SEC (9.7-13.0)
[2023-08-13 10:26] LABS: POTASSIUM 3.7 mmol/L (3.5-5.1)
[2023-08-13 10:27] LABS: CALCIUM 9.5 mg/dL (8.5-10.1)
[2023-08-13 10:28] LABS: BLOOD UREA NITROGEN 25.1 mg/dL (7-18)
[2023-08-13 10:31] LABS: CREATININE 0.6 mg/dL (0.55-1.3)
[2023-08-13] MEDS: AMINO ACIDS/PROTEIN HYDROLYS 30 ML LIQUID.PKT PO SCH ×2 (13:56→17:03)
[2023-08-13] MEDS ORDERED: INSULIN (NOVOLOG) ASPART 100 UNITS/ML 10ML VIAL ONE (21:44)
[2023-08-13] MEDS: ATORVASTATIN CA 10 MG TABLET (FP) PO SCH (21:53)
[2023-08-13] MEDS: SENNOSIDES 8.6MG TABLET (FP) PO SCH (21:53)
[2023-08-13] MEDS ORDERED: ENOXAPARIN NA (PORCINE) 40 MG/0.4 ML DISP.SYRIN SQ SCH (22:00)
[2023-08-14] MEDS: AZTREONAM 2 GM in DEXTROSE 5%-WATER 100 ML IVPB SCH ×3 (01:51→17:17)
[2023-08-14] MEDS: DOCUSATE SODIUM 100 MG CAPSULE (FP) PO SCH ×3 (06:31→22:00)
[2023-08-14] MEDS: GABAPENTIN 100 MG CAPSULE PO SCH ×3 (06:31→21:59)
[2023-08-14] MEDS: INSULIN SLIDING SCALE (NOVOLOG) 1 VIAL SQ SCH ×4 (06:31→21:59)
[2023-08-14] MEDS: AMINO ACIDS/PROTEIN HYDROLYS 30 ML LIQUID.PKT PO SCH ×2 (08:21→16:59)
[2023-08-14] MEDS: ZINC SULFATE 220 MG CAPSULE (FP) PO SCH (09:42)
[2023-08-14] MEDS: amLODIPine BESYLATE 2.5 MG TABLET (FP) PO SCH (09:42)
[2023-08-14] MEDS: MULTIVITAMINS (DAILY MVI) TABLET (FP) PO SCH (09:42)
[2023-08-14] MEDS: DULoxetine HCL 30 MG CAPSULE.DR PO SCH (09:43)
[2023-08-14] MEDS: ASCORBIC ACID 500 MG TABLET (FP) PO SCH (09:43)
[2023-08-14] MEDS: PANTOPRAZOLE 40 MG TABLET PO SCH (09:44)
[2023-08-14] MEDS: COLLAGENASE CLOSTRIDIUM HIST. 30 GRAMS TUBE TP SCH (13:13)
[2023-08-14] MEDS: ACETAMINOPHEN 325 MG TABLET (FP) PO PRN ×2 (13:14→21:22)
[2023-08-14] MEDS: PATIENT'S OWN MEDICATION (NON-FORMULARY) (Empagliflozin [Jardiance] 10 MG) PO SCH (13:14)
[2023-08-14 16:58] LABS: INR 1.77 (0.83-1.09); PROTHROMBIN TIME (PATIENT) 20.4 SEC (9.7-13.0)
[2023-08-14] MEDS ORDERED: INSULIN (NOVOLOG) ASPART 100 UNITS/ML 10ML VIAL ONE (16:58)
[2023-08-14] MEDS: morphine SULFATE 4 MG/ML VIAL IVPUSH PRN (20:10)
[2023-08-14] MEDS: ATORVASTATIN CA 10 MG TABLET (FP) PO SCH (22:00)
[2023-08-14] MEDS: SENNOSIDES 8.6MG TABLET (FP) PO SCH (22:00)
[2023-08-14] MEDS ORDERED: VANCOMYCIN/WATER FOR INJ (PEG) 750 MG/150 ML BAG IVPB ONE (22:10)
[2023-08-15] MEDS: AZTREONAM 2 GM in DEXTROSE 5%-WATER 100 ML IVPB SCH ×3 (01:49→17:10)
[2023-08-15] MEDS: morphine SULFATE 4 MG/ML VIAL IVPUSH PRN ×2 (02:25→17:16)
[2023-08-15] MEDS: GABAPENTIN 100 MG CAPSULE PO SCH ×3 (06:25→21:53)
[2023-08-15] MEDS: DOCUSATE SODIUM 100 MG CAPSULE (FP) PO SCH ×3 (06:25→21:53)
[2023-08-15] MEDS: INSULIN SLIDING SCALE (NOVOLOG) 1 VIAL SQ SCH ×4 (07:19→21:55)
[2023-08-15] MEDS: AMINO ACIDS/PROTEIN HYDROLYS 30 ML LIQUID.PKT PO SCH ×2 (08:57→17:10)
[2023-08-15] MEDS: PATIENT'S OWN MEDICATION (NON-FORMULARY) (Empagliflozin [Jardiance] 10 MG) PO SCH (08:59)
[2023-08-15] MEDS: PANTOPRAZOLE 40 MG TABLET PO SCH (08:59)
[2023-08-15] MEDS: MULTIVITAMINS (DAILY MVI) TABLET (FP) PO SCH (08:59)
[2023-08-15] MEDS: ZINC SULFATE 220 MG CAPSULE (FP) PO SCH (08:59)
[2023-08-15] MEDS: ASCORBIC ACID 500 MG TABLET (FP) PO SCH (08:59)
[2023-08-15] MEDS: DULoxetine HCL 30 MG CAPSULE.DR PO SCH (09:17)
[2023-08-15] MEDS: amLODIPine BESYLATE 2.5 MG TABLET (FP) PO SCH (09:17)
[2023-08-15 09:20] LABS: INR 1.65 (0.83-1.09); PROTHROMBIN TIME (PATIENT) 19.1 SEC (9.7-13.0)
[2023-08-15] MEDS: COLLAGENASE CLOSTRIDIUM HIST. 30 GRAMS TUBE TP SCH (09:20)
[2023-08-15 09:21] LABS: BASO % 0.3 % (0-2.0); EOS % 8.9 % (0-4.5); HEMATOCRIT 29.8 % (32.4-45.2); HEMOGLOBIN 9.5 GM/dL (10.7-15.3); LYMPH % 17.2 % (8-40); MCH 27.2 pg (25.7-33.7); MCHC 31.9 g/dl (32.0-36.0); MEAN CELL VOLUME 85.2 fl (80-96); MONO % 12.5 % (3.8-10.2); NEUT % 61.1 % (42.8-82.8); PLATELET COUNT 640 10^3/uL (134-434); RDW 17.4 % (11.6-15.6)
[2023-08-15 09:56] LABS: CALCIUM 9.6 mg/dL (8.5-10.1)
[2023-08-15 09:57] LABS: BLOOD UREA NITROGEN 20.2 mg/dL (7-18)
[2023-08-15 10:00] LABS: CREATININE 0.5 mg/dL (0.55-1.3)
[2023-08-15] MEDS ORDERED: BUPIVACAINE HCL/PF 0.25% (2.5MG/ML) 10 ML VIAL ONE (10:59)
[2023-08-15] MEDS ORDERED: DEXAMETHASONE SOD PHOSPHATE 4 MG/1 ML VIAL ONE ×2 (11:00→11:41)
[2023-08-15] MEDS ORDERED: LIDOCAINE HCL 2% (20ML MULTI-DOSE VIAL) ONE (11:00)
[2023-08-15] MEDS ORDERED: MIDAZOLAM HCL 2 MG/2 ML SINGLE DOSE VIAL ONE (11:17)
[2023-08-15] MEDS ORDERED: PROPOFOL 20 ML ONE ×2 (11:33→12:04)
[2023-08-15] MEDS ORDERED: LIDOCAINE HCL 2% (50ML VIAL) INF ONE (11:36)
[2023-08-15] MEDS ORDERED: ONDANSETRON 4 MG/2 ML VIAL ONE (11:41)
[2023-08-15] MEDS ORDERED: GENTAMICIN SO4 80 MG/2 ML VIAL ONE (12:12)
[2023-08-15] MEDS ORDERED: GENTAMICIN SO4 80 MG/2 ML VIAL IVPB ONE (12:19)
[2023-08-15] MEDS ORDERED: ONDANSETRON 4 MG/2 ML VIAL IVPUSH PRN (12:56)
[2023-08-15] MEDS: ACETAMINOPHEN 325 MG TABLET (FP) PO PRN (14:58)
[2023-08-15] MEDS: VALSARTAN 80 MG TABLET PO SCH (14:58)
[2023-08-15 17:28] LABS: BASO % 0.3 % (0-2.0); EOS % 0.6 % (0-4.5); HEMATOCRIT 31.4 % (32.4-45.2); LYMPH % 11.1 % (8-40); MEAN CELL VOLUME 84.4 fl (80-96); MEAN PLT VOLUME 7.7 fl (7.5-11.1); MONO % 1.5 % (3.8-10.2); NEUT % 86.5 % (42.8-82.8); PLATELET COUNT 649 10^3/uL (134-434); RBC 3.72 M/mm3 (3.60-5.2); RDW 17.7 % (11.6-15.6); WHITE BLOOD COUNT 7.7 K/mm3 (4.0-10.0)
[2023-08-15] MEDS ORDERED: INSULIN (NOVOLOG) ASPART 100 UNITS/ML 10ML VIAL ONE (21:05)
[2023-08-15] MEDS: ATORVASTATIN CA 10 MG TABLET (FP) PO SCH (21:54)
[2023-08-15] MEDS: SENNOSIDES 8.6MG TABLET (FP) PO SCH (21:54)
[2023-08-15] MEDS ORDERED: ENOXAPARIN NA (PORCINE) 40 MG/0.4 ML DISP.SYRIN SQ ONE (22:00)
[2023-08-16] MEDS: AZTREONAM 2 GM in DEXTROSE 5%-WATER 100 ML IVPB SCH ×3 (02:03→17:46)
[2023-08-16] MEDS ORDERED: INSULIN (NOVOLOG) ASPART 100 UNITS/ML 10ML VIAL ONE (06:08)
[2023-08-16] MEDS: DOCUSATE SODIUM 100 MG CAPSULE (FP) PO SCH ×3 (06:37→22:24)
[2023-08-16] MEDS: GABAPENTIN 100 MG CAPSULE PO SCH ×3 (06:37→22:23)
[2023-08-16] MEDS: (Empagliflozin [Jardiance] 10 MG) PO SCH (06:39)
[2023-08-16] MEDS: INSULIN SLIDING SCALE (NOVOLOG) 1 VIAL SQ SCH ×4 (06:39→22:31)
[2023-08-16 09:33] LABS: BASO % 0.5 % (0-2.0); EOS % 2.1 % (0-4.5); HEMATOCRIT 27.1 % (32.4-45.2); HEMOGLOBIN 8.7 GM/dL (10.7-15.3); LYMPH % 24.9 % (8-40); MCH 27.2 pg (25.7-33.7); MCHC 31.9 g/dl (32.0-36.0); MEAN CELL VOLUME 85.2 fl (80-96); MEAN PLT VOLUME 7.9 fl (7.5-11.1); MONO % 12.6 % (3.8-10.2); NEUT % 59.9 % (42.8-82.8); PLATELET COUNT 657 10^3/uL (134-434); RBC 3.18 M/mm3 (3.60-5.2); RDW 17.3 % (11.6-15.6); WHITE BLOOD COUNT 7.4 K/mm3 (4.0-10.0)
[2023-08-16 09:57] LABS: POTASSIUM 4.2 mmol/L (3.5-5.1)
[2023-08-16] MEDS ORDERED: APIXABAN 2.5 MG TABLET PO SCH ×2 (10:00)
[2023-08-16] MEDS ORDERED: amLODIPine BESYLATE 2.5 MG TABLET (FP) PO SCH (10:00)
[2023-08-16 10:03] LABS: CALCIUM 9.6 mg/dL (8.5-10.1)
[2023-08-16 10:04] LABS: ALBUMIN 2.3 g/dl (3.4-5.0); BLOOD UREA NITROGEN 25.5 mg/dL (7-18)
[2023-08-16 10:06] LABS: CREATININE 0.6 mg/dL (0.55-1.3)
[2023-08-16 10:08] LABS: TOT PROT 6.2 g/dl (6.4-8.2)
[2023-08-16] MEDS: AMINO ACIDS/PROTEIN HYDROLYS 30 ML LIQUID.PKT PO SCH ×2 (10:10→16:47)
[2023-08-16] MEDS: MULTIVITAMINS (DAILY MVI) TABLET (FP) PO SCH (10:10)
[2023-08-16 10:11] LABS: BILIRUBIN,TOTAL 0.1 mg/dL (0.2-1)
[2023-08-16] MEDS: PANTOPRAZOLE 40 MG TABLET PO SCH (10:11)
[2023-08-16] MEDS: ASCORBIC ACID 500 MG TABLET (FP) PO SCH (10:11)
[2023-08-16] MEDS: amLODIPine BESYLATE 5 MG TABLET (FP) PO SCH (10:11)
[2023-08-16] MEDS: ACETAMINOPHEN 325 MG TABLET (FP) PO PRN ×3 (10:11→22:25)
[2023-08-16] MEDS: ZINC SULFATE 220 MG CAPSULE (FP) PO SCH (10:11)
[2023-08-16] MEDS: VALSARTAN 80 MG TABLET PO SCH (10:11)
[2023-08-16] MEDS: DULoxetine HCL 30 MG CAPSULE.DR PO SCH (10:11)
[2023-08-16] MEDS ORDERED: ENOXAPARIN NA (PORCINE) 80 MG/0.8 ML DISP.SYRIN SQ SCH (14:30)
[2023-08-16] MEDS: ENOXAPARIN NA (PORCINE) 80 MG/0.8 ML DISP.SYRIN SQ SCH ×2 (16:06→22:26)
[2023-08-16] MEDS: VANCOMYCIN/WATER FOR INJ (PEG) 1,000 MG/200 ML BAG IVPB SCH (18:44)
[2023-08-16] MEDS: morphine SULFATE 4 MG/ML VIAL IVPUSH PRN (21:02)
[2023-08-16] MEDS: SENNOSIDES 8.6MG TABLET (FP) PO SCH (22:23)
[2023-08-16] MEDS: ATORVASTATIN CA 10 MG TABLET (FP) PO SCH (22:24)
[2023-08-17] MEDS: morphine SULFATE 4 MG/ML VIAL IVPUSH PRN ×3 (02:15→22:06)
[2023-08-17] MEDS: AZTREONAM 2 GM in DEXTROSE 5%-WATER 100 ML IVPB SCH ×3 (02:15→17:14)
[2023-08-17] MEDS: DOCUSATE SODIUM 100 MG CAPSULE (FP) PO SCH ×3 (07:09→22:41)
[2023-08-17] MEDS: GABAPENTIN 100 MG CAPSULE PO SCH ×3 (07:09→22:41)
[2023-08-17] MEDS: INSULIN SLIDING SCALE (NOVOLOG) 1 VIAL SQ SCH ×4 (07:10→22:56)
[2023-08-17] MEDS: (Empagliflozin [Jardiance] 10 MG) PO SCH (07:10)
[2023-08-17 09:23] LABS: BASO % 0.4 % (0-2.0); EOS % 8.2 % (0-4.5); HEMATOCRIT 26.3 % (32.4-45.2); HEMOGLOBIN 8.3 GM/dL (10.7-15.3); LYMPH % 23.2 % (8-40); MCHC 31.7 g/dl (32.0-36.0); MEAN CELL VOLUME 85.1 fl (80-96); MEAN PLT VOLUME 7.9 fl (7.5-11.1); MONO % 10.6 % (3.8-10.2); NEUT % 57.6 % (42.8-82.8); PLATELET COUNT 610 10^3/uL (134-434); RBC 3.09 M/mm3 (3.60-5.2); RDW 17.1 % (11.6-15.6); WHITE BLOOD COUNT 8.5 K/mm3 (4.0-10.0)
[2023-08-17] MEDS: ACETAMINOPHEN 325 MG TABLET (FP) PO PRN ×3 (09:57→22:42)
[2023-08-17] MEDS: VALSARTAN 80 MG TABLET PO SCH (09:58)
[2023-08-17] MEDS: PANTOPRAZOLE 40 MG TABLET PO SCH (09:58)
[2023-08-17] MEDS: ASCORBIC ACID 500 MG TABLET (FP) PO SCH (09:58)
[2023-08-17] MEDS: ZINC SULFATE 220 MG CAPSULE (FP) PO SCH (09:58)
[2023-08-17] MEDS: DULoxetine HCL 30 MG CAPSULE.DR PO SCH (09:58)
[2023-08-17] MEDS: MULTIVITAMINS (DAILY MVI) TABLET (FP) PO SCH (09:58)
[2023-08-17] MEDS: amLODIPine BESYLATE 5 MG TABLET (FP) PO SCH (09:58)
[2023-08-17] MEDS: AMINO ACIDS/PROTEIN HYDROLYS 30 ML LIQUID.PKT PO SCH ×2 (09:59→17:14)
[2023-08-17] MEDS: ENOXAPARIN NA (PORCINE) 80 MG/0.8 ML DISP.SYRIN SQ SCH ×2 (09:59→22:40)
[2023-08-17 10:25] LABS: POTASSIUM 4.2 mmol/L (3.5-5.1)
[2023-08-17 10:27] LABS: ALBUMIN 2.3 g/dl (3.4-5.0); BLOOD UREA NITROGEN 30.1 mg/dL (7-18); CALCIUM 9.5 mg/dL (8.5-10.1)
[2023-08-17 10:30] LABS: CREATININE 0.6 mg/dL (0.55-1.3)
[2023-08-17 10:32] LABS: BILIRUBIN,TOTAL 0.2 mg/dL (0.2-1)
[2023-08-17] MEDS ORDERED: INSULIN (NOVOLOG) ASPART 100 UNITS/ML 10ML VIAL ONE (12:00)
[2023-08-17] MEDS: VANCOMYCIN/WATER FOR INJ (PEG) 1,000 MG/200 ML BAG IVPB SCH (19:09)
[2023-08-17] MEDS: SENNOSIDES 8.6MG TABLET (FP) PO SCH (22:41)
[2023-08-17] MEDS: ATORVASTATIN CA 10 MG TABLET (FP) PO SCH (22:41)
[2023-08-18] MEDS: AZTREONAM 2 GM in DEXTROSE 5%-WATER 100 ML IVPB SCH ×3 (01:26→17:21)
[2023-08-18] MEDS: morphine SULFATE 4 MG/ML VIAL IVPUSH PRN ×2 (04:51→10:51)
[2023-08-18] MEDS: GABAPENTIN 100 MG CAPSULE PO SCH ×3 (06:09→22:02)
[2023-08-18] MEDS: DOCUSATE SODIUM 100 MG CAPSULE (FP) PO SCH ×3 (06:09→22:02)
[2023-08-18] MEDS: INSULIN SLIDING SCALE (NOVOLOG) 1 VIAL SQ SCH ×4 (07:01→22:17)
[2023-08-18] MEDS: (Empagliflozin [Jardiance] 10 MG) PO SCH (07:01)
[2023-08-18] MEDS: DULoxetine HCL 30 MG CAPSULE.DR PO SCH (09:54)
[2023-08-18] MEDS: ZINC SULFATE 220 MG CAPSULE (FP) PO SCH (09:54)
[2023-08-18] MEDS: amLODIPine BESYLATE 5 MG TABLET (FP) PO SCH (09:55)
[2023-08-18] MEDS: ENOXAPARIN NA (PORCINE) 80 MG/0.8 ML DISP.SYRIN SQ SCH ×2 (09:55→22:03)
[2023-08-18] MEDS: ASCORBIC ACID 500 MG TABLET (FP) PO SCH (09:55)
[2023-08-18] MEDS: PANTOPRAZOLE 40 MG TABLET PO SCH (09:55)
[2023-08-18] MEDS: MULTIVITAMINS (DAILY MVI) TABLET (FP) PO SCH (09:55)
[2023-08-18] MEDS: AMINO ACIDS/PROTEIN HYDROLYS 30 ML LIQUID.PKT PO SCH ×2 (09:56→17:22)
[2023-08-18] MEDS: VALSARTAN 80 MG TABLET PO SCH ×2 (10:01→22:02)
[2023-08-18] MEDS: VANCOMYCIN/WATER FOR INJ (PEG) 1,000 MG/200 ML BAG IVPB SCH (19:23)
[2023-08-18] MEDS: ACETAMINOPHEN 325 MG TABLET (FP) PO PRN (19:28)
[2023-08-18] MEDS: ATORVASTATIN CA 10 MG TABLET (FP) PO SCH (22:02)
[2023-08-18] MEDS: SENNOSIDES 8.6MG TABLET (FP) PO SCH (22:03)
[2023-08-18] MEDS ORDERED: INSULIN (NOVOLOG) ASPART 100 UNITS/ML 10ML VIAL ONE (22:13)
[2023-08-19] MEDS: AZTREONAM 2 GM in DEXTROSE 5%-WATER 100 ML IVPB SCH ×3 (01:12→17:50)
[2023-08-19] MEDS: DOCUSATE SODIUM 100 MG CAPSULE (FP) PO SCH ×3 (06:18→21:42)
[2023-08-19] MEDS: GABAPENTIN 100 MG CAPSULE PO SCH ×3 (06:19→21:42)
[2023-08-19] MEDS: INSULIN SLIDING SCALE (NOVOLOG) 1 VIAL SQ SCH ×4 (06:24→21:56)
[2023-08-19] MEDS: (Empagliflozin [Jardiance] 10 MG) PO SCH (07:35)
[2023-08-19] MEDS: AMINO ACIDS/PROTEIN HYDROLYS 30 ML LIQUID.PKT PO SCH ×2 (08:56→17:50)
[2023-08-19] MEDS: ZINC SULFATE 220 MG CAPSULE (FP) PO SCH (09:03)
[2023-08-19] MEDS: amLODIPine BESYLATE 5 MG TABLET (FP) PO SCH (09:03)
[2023-08-19] MEDS: ENOXAPARIN NA (PORCINE) 80 MG/0.8 ML DISP.SYRIN SQ SCH ×2 (09:03→21:45)
[2023-08-19] MEDS: PANTOPRAZOLE 40 MG TABLET PO SCH (09:04)
[2023-08-19] MEDS: VALSARTAN 80 MG TABLET PO SCH ×2 (09:04→21:42)
[2023-08-19] MEDS: ASCORBIC ACID 500 MG TABLET (FP) PO SCH (09:04)
[2023-08-19] MEDS: DULoxetine HCL 30 MG CAPSULE.DR PO SCH (09:04)
[2023-08-19] MEDS: MULTIVITAMINS (DAILY MVI) TABLET (FP) PO SCH (09:04)
[2023-08-19 10:08] LABS: BASO % 0.4 % (0-2.0); EOS % 2.4 % (0-4.5); HEMATOCRIT 28.4 % (32.4-45.2); HEMOGLOBIN 9.1 GM/dL (10.7-15.3); LYMPH % 14.6 % (8-40); MCH 27.2 pg (25.7-33.7); MEAN CELL VOLUME 84.9 fl (80-96); MEAN PLT VOLUME 7.9 fl (7.5-11.1); MONO % 11.8 % (3.8-10.2); NEUT % 70.8 % (42.8-82.8); PLATELET COUNT 603 10^3/uL (134-434); RBC 3.34 M/mm3 (3.60-5.2); RDW 17.3 % (11.6-15.6); WHITE BLOOD COUNT 10.3 K/mm3 (4.0-10.0)
[2023-08-19] MEDS: HYDROmorphone HCL 2 MG TABLET PO PRN ×2 (10:29→18:07)
[2023-08-19 10:31] LABS: POTASSIUM 4.1 mmol/L (3.5-5.1)
[2023-08-19 10:40] LABS: ALBUMIN 2.4 g/dl (3.4-5.0); BLOOD UREA NITROGEN 18.2 mg/dL (7-18); CALCIUM 9.5 mg/dL (8.5-10.1)
[2023-08-19] MEDS: COLLAGENASE CLOSTRIDIUM HIST. 30 GRAMS TUBE TP SCH (10:40)
[2023-08-19 10:43] LABS: CREATININE 0.5 mg/dL (0.55-1.3)
[2023-08-19 10:45] LABS: BILIRUBIN,TOTAL 0.2 mg/dL (0.2-1); TOT PROT 6.3 g/dl (6.4-8.2)
[2023-08-19] MEDS ORDERED: INSULIN (NOVOLOG) ASPART 100 UNITS/ML 10ML VIAL ONE (11:26)
[2023-08-19] MEDS: VANCOMYCIN/WATER FOR INJ (PEG) 1,000 MG/200 ML BAG IVPB SCH (18:22)
[2023-08-19] MEDS: SENNOSIDES 8.6MG TABLET (FP) PO SCH (21:42)
[2023-08-19] MEDS: ATORVASTATIN CA 10 MG TABLET (FP) PO SCH (21:42)
[2023-08-19] MEDS: ACETAMINOPHEN 325 MG TABLET (FP) PO PRN (21:52)
[2023-08-20] MEDS: HYDROmorphone HCL 2 MG TABLET PO PRN ×2 (01:57→13:20)
[2023-08-20] MEDS: AZTREONAM 2 GM in DEXTROSE 5%-WATER 100 ML IVPB SCH ×3 (02:07→18:52)
[2023-08-20] MEDS: DOCUSATE SODIUM 100 MG CAPSULE (FP) PO SCH ×3 (05:35→21:39)
[2023-08-20] MEDS: GABAPENTIN 100 MG CAPSULE PO SCH ×3 (05:35→21:39)
[2023-08-20] MEDS: (Empagliflozin [Jardiance] 10 MG) PO SCH (06:39)
[2023-08-20] MEDS: INSULIN SLIDING SCALE (NOVOLOG) 1 VIAL SQ SCH ×4 (06:41→22:01)
[2023-08-20] MEDS: ACETAMINOPHEN 325 MG TABLET (FP) PO PRN ×2 (09:25→17:40)
[2023-08-20] MEDS: DULoxetine HCL 30 MG CAPSULE.DR PO SCH (09:29)
[2023-08-20] MEDS: ZINC SULFATE 220 MG CAPSULE (FP) PO SCH (09:29)
[2023-08-20] MEDS: PANTOPRAZOLE 40 MG TABLET PO SCH (09:29)
[2023-08-20] MEDS: amLODIPine BESYLATE 5 MG TABLET (FP) PO SCH (09:30)
[2023-08-20] MEDS: MULTIVITAMINS (DAILY MVI) TABLET (FP) PO SCH (09:30)
[2023-08-20] MEDS: ASCORBIC ACID 500 MG TABLET (FP) PO SCH (09:31)
[2023-08-20] MEDS: VALSARTAN 80 MG TABLET PO SCH ×2 (09:31→21:39)
[2023-08-20] MEDS: ENOXAPARIN NA (PORCINE) 80 MG/0.8 ML DISP.SYRIN SQ SCH ×2 (09:34→21:42)
[2023-08-20] MEDS: AMINO ACIDS/PROTEIN HYDROLYS 30 ML LIQUID.PKT PO SCH ×2 (09:46→17:41)
[2023-08-20] MEDS ORDERED: GLYCERIN 1 RECTAL SUPPOSITORY, ADULT RC PRN (10:00)
[2023-08-20] MEDS: COLLAGENASE CLOSTRIDIUM HIST. 30 GRAMS TUBE TP SCH (10:15)
[2023-08-20] MEDS ORDERED: INSULIN (NOVOLOG) ASPART 100 UNITS/ML 10ML VIAL ONE ×2 (12:19→21:36)
[2023-08-20] MEDS: ATORVASTATIN CA 10 MG TABLET (FP) PO SCH (21:39)
[2023-08-20] MEDS: SENNOSIDES 8.6MG TABLET (FP) PO SCH (21:39)
[2023-08-20] MEDS: VANCOMYCIN/WATER FOR INJ (PEG) 1,000 MG/200 ML BAG IVPB SCH (21:44)
[2023-08-21] MEDS: AZTREONAM 2 GM in DEXTROSE 5%-WATER 100 ML IVPB SCH ×3 (02:05→17:51)
[2023-08-21] MEDS: ACETAMINOPHEN 325 MG TABLET (FP) PO PRN ×3 (02:12→22:01)
[2023-08-21] MEDS: HYDROmorphone HCL 2 MG TABLET PO PRN ×2 (04:46→17:49)
[2023-08-21] MEDS ORDERED: INSULIN (NOVOLOG) ASPART 100 UNITS/ML 10ML VIAL ONE ×2 (05:30→11:54)
[2023-08-21] MEDS: GABAPENTIN 100 MG CAPSULE PO SCH ×3 (05:38→22:01)
[2023-08-21] MEDS: DOCUSATE SODIUM 100 MG CAPSULE (FP) PO SCH ×2 (05:38→14:55)
[2023-08-21] MEDS: (Empagliflozin [Jardiance] 10 MG) PO SCH (06:38)
[2023-08-21] MEDS: INSULIN SLIDING SCALE (NOVOLOG) 1 VIAL SQ SCH ×4 (06:46→22:11)
[2023-08-21] MEDS: AMINO ACIDS/PROTEIN HYDROLYS 30 ML LIQUID.PKT PO SCH ×2 (07:53→17:51)
[2023-08-21 09:04] LABS: HEMATOCRIT 27.5 % (32.4-45.2); MCH 27.3 pg (25.7-33.7); MCHC 32.9 g/dl (32.0-36.0); MEAN CELL VOLUME 83.2 fl (80-96); MEAN PLT VOLUME 8.2 fl (7.5-11.1); PLATELET COUNT 587 10^3/uL (134-434); WHITE BLOOD COUNT 10.1 K/mm3 (4.0-10.0)
[2023-08-21] MEDS: VALSARTAN 80 MG TABLET PO SCH ×2 (09:06→22:00)
[2023-08-21] MEDS: DULoxetine HCL 30 MG CAPSULE.DR PO SCH (09:06)
[2023-08-21] MEDS: amLODIPine BESYLATE 5 MG TABLET (FP) PO SCH (09:07)
[2023-08-21] MEDS: MULTIVITAMINS (DAILY MVI) TABLET (FP) PO SCH (09:07)
[2023-08-21] MEDS: ASCORBIC ACID 500 MG TABLET (FP) PO SCH (09:07)
[2023-08-21] MEDS: PANTOPRAZOLE 40 MG TABLET PO SCH (09:07)
[2023-08-21] MEDS: ENOXAPARIN NA (PORCINE) 80 MG/0.8 ML DISP.SYRIN SQ SCH ×2 (09:13→22:01)
[2023-08-21 09:32] LABS: POTASSIUM 3.7 mmol/L (3.5-5.1)
[2023-08-21 09:35] LABS: ALBUMIN 2.4 g/dl (3.4-5.0); BLOOD UREA NITROGEN 24.4 mg/dL (7-18); CALCIUM 9.5 mg/dL (8.5-10.1); MAGNESIUM 2.2 mg/dL (1.8-2.4)
[2023-08-21 09:38] LABS: CREATININE 0.6 mg/dL (0.55-1.3)
[2023-08-21 09:40] LABS: BILIRUBIN,TOTAL 0.2 mg/dL (0.2-1); TOT PROT 6.3 g/dl (6.4-8.2)
[2023-08-21] MEDS ORDERED: HYDROmorphone HCL 2 MG TABLET PO ONE (10:15)
[2023-08-21] MEDS: COLLAGENASE CLOSTRIDIUM HIST. 30 GRAMS TUBE TP SCH (15:27)
[2023-08-21] MEDS: SENNOSIDES 8.6MG TABLET (FP) PO SCH (22:00)
[2023-08-21] MEDS: ATORVASTATIN CA 10 MG TABLET (FP) PO SCH (22:00)
[2023-08-22] MEDS: DOCUSATE SODIUM 100 MG CAPSULE (FP) PO SCH ×4 (00:57→22:27)
[2023-08-22] MEDS: HYDROmorphone HCL 2 MG TABLET PO PRN ×3 (01:01→18:38)
[2023-08-22] MEDS: AZTREONAM 2 GM in DEXTROSE 5%-WATER 100 ML IVPB SCH ×3 (03:26→18:24)
[2023-08-22] MEDS: (Empagliflozin [Jardiance] 10 MG) PO SCH (06:13)
[2023-08-22] MEDS: GABAPENTIN 100 MG CAPSULE PO SCH ×3 (06:14→22:27)
[2023-08-22] MEDS: INSULIN SLIDING SCALE (NOVOLOG) 1 VIAL SQ SCH ×4 (06:15→22:27)
[2023-08-22] MEDS: AMINO ACIDS/PROTEIN HYDROLYS 30 ML LIQUID.PKT PO SCH ×2 (09:22→18:24)
[2023-08-22] MEDS: VALSARTAN 80 MG TABLET PO SCH ×2 (09:22→22:27)
[2023-08-22] MEDS: ENOXAPARIN NA (PORCINE) 80 MG/0.8 ML DISP.SYRIN SQ SCH ×2 (09:22→22:28)
[2023-08-22] MEDS: ASCORBIC ACID 500 MG TABLET (FP) PO SCH (09:22)
[2023-08-22] MEDS: PANTOPRAZOLE 40 MG TABLET PO SCH (09:22)
[2023-08-22] MEDS: MULTIVITAMINS (DAILY MVI) TABLET (FP) PO SCH (09:23)
[2023-08-22] MEDS: DULoxetine HCL 30 MG CAPSULE.DR PO SCH (09:23)
[2023-08-22] MEDS: amLODIPine BESYLATE 5 MG TABLET (FP) PO SCH (09:23)
[2023-08-22] MEDS: ACETAMINOPHEN 325 MG TABLET (FP) PO PRN ×2 (13:56→22:04)
[2023-08-22] MEDS: ATORVASTATIN CA 10 MG TABLET (FP) PO SCH (22:27)
[2023-08-22] MEDS: SENNOSIDES 8.6MG TABLET (FP) PO SCH (22:27)
[2023-08-23] MEDS: AZTREONAM 2 GM in DEXTROSE 5%-WATER 100 ML IVPB SCH ×3 (01:11→18:29)
[2023-08-23] MEDS: HYDROmorphone HCL 2 MG TABLET PO PRN ×3 (01:19→20:10)
[2023-08-23] MEDS: ACETAMINOPHEN 325 MG TABLET (FP) PO PRN ×3 (03:48→21:15)
[2023-08-23] MEDS: GABAPENTIN 100 MG CAPSULE PO SCH ×3 (05:39→21:17)
[2023-08-23] MEDS: DOCUSATE SODIUM 100 MG CAPSULE (FP) PO SCH ×3 (05:51→21:17)
[2023-08-23] MEDS: (Empagliflozin [Jardiance] 10 MG) PO SCH (06:00)
[2023-08-23] MEDS: INSULIN SLIDING SCALE (NOVOLOG) 1 VIAL SQ SCH ×4 (06:00→22:45)
[2023-08-23] MEDS: AMINO ACIDS/PROTEIN HYDROLYS 30 ML LIQUID.PKT PO SCH ×2 (07:46→16:44)
[2023-08-23] MEDS: MULTIVITAMINS (DAILY MVI) TABLET (FP) PO SCH (09:30)
[2023-08-23] MEDS: ASCORBIC ACID 500 MG TABLET (FP) PO SCH (09:30)
[2023-08-23] MEDS: ENOXAPARIN NA (PORCINE) 80 MG/0.8 ML DISP.SYRIN SQ SCH ×2 (09:30→21:17)
[2023-08-23] MEDS: DULoxetine HCL 30 MG CAPSULE.DR PO SCH (09:31)
[2023-08-23] MEDS: amLODIPine BESYLATE 5 MG TABLET (FP) PO SCH (09:31)
[2023-08-23] MEDS: PANTOPRAZOLE 40 MG TABLET PO SCH (09:31)
[2023-08-23] MEDS: VALSARTAN 80 MG TABLET PO SCH ×2 (09:31→21:17)
[2023-08-23] MEDS ORDERED: INSULIN (NOVOLOG) ASPART 100 UNITS/ML 10ML VIAL ONE ×2 (12:27→22:34)
[2023-08-23] MEDS ORDERED: FENTANYL PATCH WASTE TD PRN (13:15)
[2023-08-23] MEDS ORDERED: fentaNYL 12mcg/hr PATCH.TD72 TD SCH (13:15)
[2023-08-23] MEDS: SENNOSIDES 8.6MG TABLET (FP) PO SCH (21:17)
[2023-08-23] MEDS: ATORVASTATIN CA 10 MG TABLET (FP) PO SCH (21:17)
[2023-08-24] MEDS: AZTREONAM 2 GM in DEXTROSE 5%-WATER 100 ML IVPB SCH ×3 (02:00→18:02)
[2023-08-24] MEDS: HYDROmorphone HCL 2 MG TABLET PO PRN ×3 (04:34→22:49)
[2023-08-24] MEDS: DOCUSATE SODIUM 100 MG CAPSULE (FP) PO SCH ×3 (05:17→21:31)
[2023-08-24] MEDS: GABAPENTIN 100 MG CAPSULE PO SCH ×3 (05:17→21:31)
[2023-08-24] MEDS: INSULIN SLIDING SCALE (NOVOLOG) 1 VIAL SQ SCH ×4 (07:06→21:40)
[2023-08-24] MEDS: AMINO ACIDS/PROTEIN HYDROLYS 30 ML LIQUID.PKT PO SCH ×2 (07:37→17:56)
[2023-08-24] MEDS: amLODIPine BESYLATE 5 MG TABLET (FP) PO SCH (09:02)
[2023-08-24] MEDS: ENOXAPARIN NA (PORCINE) 80 MG/0.8 ML DISP.SYRIN SQ SCH ×2 (09:03→21:31)
[2023-08-24] MEDS: ASCORBIC ACID 500 MG TABLET (FP) PO SCH (09:03)
[2023-08-24] MEDS: VALSARTAN 80 MG TABLET PO SCH ×2 (09:03→21:31)
[2023-08-24] MEDS: PANTOPRAZOLE 40 MG TABLET PO SCH (09:03)
[2023-08-24] MEDS: MULTIVITAMINS (DAILY MVI) TABLET (FP) PO SCH (09:03)
[2023-08-24] MEDS: ACETAMINOPHEN 325 MG TABLET (FP) PO PRN ×2 (09:03→21:32)
[2023-08-24] MEDS: DULoxetine HCL 30 MG CAPSULE.DR PO SCH (09:03)
[2023-08-24 09:49] LABS: POTASSIUM 3.5 mmol/L (3.5-5.1)
[2023-08-24 09:51] LABS: CALCIUM 9.6 mg/dL (8.5-10.1)
[2023-08-24 09:52] LABS: BLOOD UREA NITROGEN 20.9 mg/dL (7-18)
[2023-08-24 09:53] LABS: INR 1.04 (0.83-1.09); PROTHROMBIN TIME (PATIENT) 12.1 SEC (9.7-13.0)
[2023-08-24 09:55] LABS: CREATININE 0.5 mg/dL (0.55-1.3)
[2023-08-24 10:15] LABS: HEMATOCRIT 28.5 % (32.4-45.2); MCH 26.6 pg (25.7-33.7); MCHC 31.6 g/dl (32.0-36.0); MEAN CELL VOLUME 84.3 fl (80-96); RBC 3.38 M/mm3 (3.60-5.2); RDW 17.1 % (11.6-15.6); WHITE BLOOD COUNT 12.5 K/mm3 (4.0-10.0)
[2023-08-24 10:16] LABS: MEAN PLT VOLUME 8.4 fl (7.5-11.1); PLATELET COUNT 648 10^3/uL (134-434)
[2023-08-24] MEDS ORDERED: INSULIN (NOVOLOG) ASPART 100 UNITS/ML 10ML VIAL ONE (11:09)
[2023-08-24] MEDS: ATORVASTATIN CA 10 MG TABLET (FP) PO SCH (21:31)
[2023-08-24] MEDS: SENNOSIDES 8.6MG TABLET (FP) PO SCH (21:31)
[2023-08-25] MEDS: AZTREONAM 2 GM in DEXTROSE 5%-WATER 100 ML IVPB SCH ×3 (01:04→18:00)
[2023-08-25] MEDS: ACETAMINOPHEN 325 MG TABLET (FP) PO PRN ×2 (05:14→11:14)
[2023-08-25] MEDS: DOCUSATE SODIUM 100 MG CAPSULE (FP) PO SCH ×3 (05:16→22:32)
[2023-08-25] MEDS: GABAPENTIN 100 MG CAPSULE PO SCH ×3 (05:16→22:32)
[2023-08-25] MEDS: HYDROmorphone HCL 2 MG TABLET PO PRN (06:38)
[2023-08-25] MEDS: INSULIN SLIDING SCALE (NOVOLOG) 1 VIAL SQ SCH ×4 (06:42→22:31)
[2023-08-25] MEDS: AMINO ACIDS/PROTEIN HYDROLYS 30 ML LIQUID.PKT PO SCH ×2 (09:51→18:09)
[2023-08-25] MEDS: DULoxetine HCL 30 MG CAPSULE.DR PO SCH (10:00)
[2023-08-25] MEDS: ASCORBIC ACID 500 MG TABLET (FP) PO SCH (10:00)
[2023-08-25] MEDS: VALSARTAN 80 MG TABLET PO SCH ×2 (10:00→22:32)
[2023-08-25] MEDS: PANTOPRAZOLE 40 MG TABLET PO SCH (10:00)
[2023-08-25] MEDS: amLODIPine BESYLATE 5 MG TABLET (FP) PO SCH (10:00)
[2023-08-25] MEDS: MULTIVITAMINS (DAILY MVI) TABLET (FP) PO SCH (10:00)
[2023-08-25] MEDS ORDERED: HYDROmorphone HCl 2 MG/ML VIAL IVPB ONE (12:45)
[2023-08-25] MEDS ORDERED: PROMETHAZINE HCL 25 MG/1 ML VIAL IVPB PRN ×2 (15:51→20:23)
[2023-08-25] MEDS ORDERED: ONDANSETRON 4 MG/2 ML VIAL IVPUSH PRN ×2 (15:51→20:23)
[2023-08-25] MEDS ORDERED: LACTATED RINGERS SOLUTION 1,000 ML IV SCH (16:00)
[2023-08-25] MEDS ORDERED: PROPOFOL 20 ML ONE ×2 (16:18→17:34)
[2023-08-25] MEDS ORDERED: LIDOCAINE HCL/PF 2% SDV 5ML VIAL ONE (16:19)
[2023-08-25] MEDS ORDERED: DEXAMETHASONE SOD PHOSPHATE 4 MG/1 ML VIAL ONE (16:52)
[2023-08-25] MEDS ORDERED: ONDANSETRON 4 MG/2 ML VIAL ONE (16:52)
[2023-08-25] MEDS ORDERED: KETOROLAC TROMETHAMINE 30 MG/1 ML VIAL ONE (16:53)
[2023-08-25] MEDS ORDERED: ACETAMINOPHEN INJECTION 100 ML IVPB ONE ×2 (17:15→17:16)
[2023-08-25] MEDS ORDERED: GLYCERIN 1 RECTAL SUPPOSITORY, ADULT RC PRN (20:23)
[2023-08-25] MEDS ORDERED: ACETAMINOPHEN 325 MG TABLET (FP) PO PRN (20:23)
[2023-08-25] MEDS ORDERED: FENTANYL PATCH WASTE TD PRN (20:23)
[2023-08-25] MEDS: LACTATED RINGERS SOLUTION 1,000 ML IV SCH (20:35)
[2023-08-25] MEDS ORDERED: INSULIN (NOVOLOG) ASPART 100 UNITS/ML 10ML VIAL ONE (22:30)
[2023-08-25] MEDS: SENNOSIDES 8.6MG TABLET (FP) PO SCH (22:32)
[2023-08-25] MEDS: ATORVASTATIN CA 10 MG TABLET (FP) PO SCH (22:32)
[2023-08-25] MEDS: ENOXAPARIN NA (PORCINE) 80 MG/0.8 ML DISP.SYRIN SQ SCH (22:32)
[2023-08-26] MEDS: HYDROmorphone HCL 2 MG TABLET PO PRN ×3 (01:20→17:36)
[2023-08-26] MEDS ORDERED: AZTREONAM 2 GM in DEXTROSE 5%-WATER 100 ML IVPB SCH (02:00)
[2023-08-26] MEDS: GABAPENTIN 100 MG CAPSULE PO SCH ×3 (05:45→23:03)
[2023-08-26] MEDS: DOCUSATE SODIUM 100 MG CAPSULE (FP) PO SCH ×3 (05:45→23:03)
[2023-08-26] MEDS: INSULIN SLIDING SCALE (NOVOLOG) 1 VIAL SQ SCH ×4 (07:12→23:11)
[2023-08-26] MEDS: AMINO ACIDS/PROTEIN HYDROLYS 30 ML LIQUID.PKT PO SCH ×2 (09:23→17:36)
[2023-08-26] MEDS: DULoxetine HCL 30 MG CAPSULE.DR PO SCH (09:51)
[2023-08-26] MEDS: VALSARTAN 80 MG TABLET PO SCH (09:51)
[2023-08-26] MEDS: amLODIPine BESYLATE 5 MG TABLET (FP) PO SCH (09:52)
[2023-08-26] MEDS: PANTOPRAZOLE 40 MG TABLET PO SCH (09:52)
[2023-08-26] MEDS: ASCORBIC ACID 500 MG TABLET (FP) PO SCH (09:52)
[2023-08-26] MEDS: MULTIVITAMINS (DAILY MVI) TABLET (FP) PO SCH (09:52)
[2023-08-26] MEDS: ENOXAPARIN NA (PORCINE) 80 MG/0.8 ML DISP.SYRIN SQ SCH (09:52)
[2023-08-26] MEDS: LACTATED RINGERS SOLUTION 1,000 ML IV SCH (10:00)
[2023-08-26 10:42] LABS: HEMATOCRIT 22.3 % (32.4-45.2); MCH 26.7 pg (25.7-33.7); MCHC 31.5 g/dl (32.0-36.0); MEAN CELL VOLUME 84.6 fl (80-96); MEAN PLT VOLUME 8.2 fl (7.5-11.1); PLATELET COUNT 667 10^3/uL (134-434); RBC 2.63 M/mm3 (3.60-5.2); RDW 17.2 % (11.6-15.6); WHITE BLOOD COUNT 10.7 K/mm3 (4.0-10.0)
[2023-08-26 11:12] LABS: POTASSIUM 4.3 mmol/L (3.5-5.1)
[2023-08-26 11:19] LABS: ALBUMIN 2.1 g/dl (3.4-5.0); BLOOD UREA NITROGEN 24.7 mg/dL (7-18); CALCIUM 9.4 mg/dL (8.5-10.1); CREATININE 0.6 mg/dL (0.55-1.3); MAGNESIUM 2.2 mg/dL (1.8-2.4)
[2023-08-26 11:22] LABS: BILIRUBIN,TOTAL 0.1 mg/dL (0.2-1); TOT PROT 5.8 g/dl (6.4-8.2)
[2023-08-26] MEDS ORDERED: ACETAMINOPHEN 325 MG TABLET (FP) PO SCH (11:45)
[2023-08-26] MEDS: ACETAMINOPHEN 500 MG TABLET (FP) PO SCH ×2 (12:58→18:39)
[2023-08-26] MEDS: fentaNYL 12mcg/hr PATCH.TD72 TD SCH (13:17)
[2023-08-26] MEDS: ATORVASTATIN CA 10 MG TABLET (FP) PO SCH (23:03)
[2023-08-26] MEDS: SENNOSIDES 8.6MG TABLET (FP) PO SCH (23:04)
[2023-08-27] MEDS: ACETAMINOPHEN 500 MG TABLET (FP) PO SCH ×3 (00:33→12:03)
[2023-08-27] MEDS: VALSARTAN 80 MG TABLET PO SCH ×3 (01:57→21:15)
[2023-08-27] MEDS: LACTATED RINGERS SOLUTION 1,000 ML IV SCH (02:03)
[2023-08-27] MEDS: DOCUSATE SODIUM 100 MG CAPSULE (FP) PO SCH ×3 (05:30→21:15)
[2023-08-27] MEDS: GABAPENTIN 100 MG CAPSULE PO SCH ×3 (05:30→21:15)
[2023-08-27] MEDS: INSULIN SLIDING SCALE (NOVOLOG) 1 VIAL SQ SCH ×4 (07:28→21:29)
[2023-08-27] MEDS: HYDROmorphone HCL 2 MG TABLET PO PRN ×3 (08:27→23:19)
[2023-08-27] MEDS: AMINO ACIDS/PROTEIN HYDROLYS 30 ML LIQUID.PKT PO SCH ×2 (08:27→17:48)
[2023-08-27 09:47] LABS: HEMATOCRIT 27.8 % (32.4-45.2); HEMOGLOBIN 9.2 GM/dL (10.7-15.3); MCH 27.5 pg (25.7-33.7); MEAN CELL VOLUME 83.5 fl (80-96); MEAN PLT VOLUME 8.1 fl (7.5-11.1); PLATELET COUNT 615 10^3/uL (134-434); RBC 3.33 M/mm3 (3.60-5.2); RDW 15.5 % (11.6-15.6); WHITE BLOOD COUNT 9.3 K/mm3 (4.0-10.0)
[2023-08-27 10:07] LABS: POTASSIUM 4.2 mmol/L (3.5-5.1)
[2023-08-27 10:08] LABS: BLOOD UREA NITROGEN 28.4 mg/dL (7-18); CALCIUM 9.2 mg/dL (8.5-10.1)
[2023-08-27 10:12] LABS: CREATININE 0.5 mg/dL (0.55-1.3)
[2023-08-27] MEDS: MULTIVITAMINS (DAILY MVI) TABLET (FP) PO SCH (10:28)
[2023-08-27] MEDS: ASCORBIC ACID 500 MG TABLET (FP) PO SCH (10:28)
[2023-08-27] MEDS: DULoxetine HCL 30 MG CAPSULE.DR PO SCH (10:28)
[2023-08-27] MEDS: PANTOPRAZOLE 40 MG TABLET PO SCH (10:28)
[2023-08-27] MEDS: amLODIPine BESYLATE 5 MG TABLET (FP) PO SCH (10:29)
[2023-08-27] MEDS ORDERED: INSULIN (NOVOLOG) ASPART 100 UNITS/ML 10ML VIAL ONE ×3 (11:10→21:28)
[2023-08-27] MEDS ORDERED: HYDROmorphone HCl 2 MG/ML VIAL IVPB PRN (15:28)
[2023-08-27] MEDS: ACETAMINOPHEN 500 MG TABLET (FP) PO PRN (21:12)
[2023-08-27] MEDS: SENNOSIDES 8.6MG TABLET (FP) PO SCH (21:15)
[2023-08-27] MEDS: ATORVASTATIN CA 10 MG TABLET (FP) PO SCH (21:15)
[2023-08-27] MEDS: ENOXAPARIN NA (PORCINE) 80 MG/0.8 ML DISP.SYRIN SQ SCH (21:17)
[2023-08-28] MEDS: ACETAMINOPHEN 500 MG TABLET (FP) PO PRN ×2 (03:21→20:21)
[2023-08-28] MEDS: GABAPENTIN 100 MG CAPSULE PO SCH ×3 (05:49→21:37)
[2023-08-28] MEDS: DOCUSATE SODIUM 100 MG CAPSULE (FP) PO SCH ×3 (05:50→21:37)
[2023-08-28] MEDS: INSULIN SLIDING SCALE (NOVOLOG) 1 VIAL SQ SCH ×4 (06:34→21:38)
[2023-08-28] MEDS: MULTIVITAMINS (DAILY MVI) TABLET (FP) PO SCH (09:29)
[2023-08-28] MEDS: VALSARTAN 80 MG TABLET PO SCH ×2 (09:29→21:37)
[2023-08-28] MEDS: PANTOPRAZOLE 40 MG TABLET PO SCH (09:29)
[2023-08-28] MEDS: ASCORBIC ACID 500 MG TABLET (FP) PO SCH (09:29)
[2023-08-28] MEDS: HYDROmorphone HCL 2 MG TABLET PO PRN ×3 (09:30→22:16)
[2023-08-28] MEDS: ENOXAPARIN NA (PORCINE) 80 MG/0.8 ML DISP.SYRIN SQ SCH ×2 (09:31→21:37)
[2023-08-28] MEDS: amLODIPine BESYLATE 5 MG TABLET (FP) PO SCH (09:31)
[2023-08-28] MEDS: AMINO ACIDS/PROTEIN HYDROLYS 30 ML LIQUID.PKT PO SCH ×2 (09:31→18:45)
[2023-08-28] MEDS: DULoxetine HCL 30 MG CAPSULE.DR PO SCH (09:31)
[2023-08-28] MEDS: ACETAMINOPHEN 500 MG TABLET (FP) PO SCH ×2 (10:52→10:53)
[2023-08-28] MEDS ORDERED: INSULIN (NOVOLOG) ASPART 100 UNITS/ML 10ML VIAL ONE (11:56)
[2023-08-28] MEDS: SENNOSIDES 8.6MG TABLET (FP) PO SCH (21:37)
[2023-08-28] MEDS: ATORVASTATIN CA 10 MG TABLET (FP) PO SCH (21:37)
[2023-08-29] MEDS: HYDROmorphone HCL 2 MG TABLET PO PRN ×2 (04:19→09:53)
[2023-08-29] MEDS: ACETAMINOPHEN 500 MG TABLET (FP) PO PRN ×2 (06:50→13:43)
[2023-08-29] MEDS: DOCUSATE SODIUM 100 MG CAPSULE (FP) PO SCH ×3 (06:51→22:42)
[2023-08-29] MEDS: GABAPENTIN 100 MG CAPSULE PO SCH ×3 (06:51→22:42)
[2023-08-29] MEDS: INSULIN SLIDING SCALE (NOVOLOG) 1 VIAL SQ SCH ×4 (06:52→22:44)
[2023-08-29] MEDS: amLODIPine BESYLATE 5 MG TABLET (FP) PO SCH (09:52)
[2023-08-29] MEDS: AMINO ACIDS/PROTEIN HYDROLYS 30 ML LIQUID.PKT PO SCH ×2 (09:52→17:42)
[2023-08-29] MEDS: ENOXAPARIN NA (PORCINE) 80 MG/0.8 ML DISP.SYRIN SQ SCH ×2 (09:53→22:44)
[2023-08-29] MEDS: PANTOPRAZOLE 40 MG TABLET PO SCH (09:53)
[2023-08-29] MEDS: VALSARTAN 80 MG TABLET PO SCH ×2 (09:53→22:42)
[2023-08-29] MEDS: DULoxetine HCL 30 MG CAPSULE.DR PO SCH (09:53)
[2023-08-29] MEDS: ASCORBIC ACID 500 MG TABLET (FP) PO SCH (09:53)
[2023-08-29] MEDS: MULTIVITAMINS (DAILY MVI) TABLET (FP) PO SCH (09:53)
[2023-08-29 11:10] LABS: HEMATOCRIT 25.4 % (32.4-45.2); HEMOGLOBIN 8.5 GM/dL (10.7-15.3); MCH 28.6 pg (25.7-33.7); MCHC 33.5 g/dl (32.0-36.0); MEAN CELL VOLUME 85.2 fl (80-96); MEAN PLT VOLUME 8.3 fl (7.5-11.1); PLATELET COUNT 565 10^3/uL (134-434); RBC 2.98 M/mm3 (3.60-5.2); RDW 16.1 % (11.6-15.6); WHITE BLOOD COUNT 7.5 K/mm3 (4.0-10.0)
[2023-08-29] MEDS ORDERED: INSULIN (NOVOLOG) ASPART 100 UNITS/ML 10ML VIAL ONE (11:41)
[2023-08-29 11:42] LABS: POTASSIUM 4.4 mmol/L (3.5-5.1)
[2023-08-29 12:07] LABS: BLOOD UREA NITROGEN 15.5 mg/dL (7-18); CALCIUM 9.3 mg/dL (8.5-10.1); MAGNESIUM 2.3 mg/dL (1.8-2.4)
[2023-08-29 12:11] LABS: CREATININE 0.5 mg/dL (0.55-1.3)
[2023-08-29] MEDS: fentaNYL 12mcg/hr PATCH.TD72 TD SCH (13:42)
[2023-08-29] MEDS: FENTANYL PATCH WASTE TD PRN (13:52)
[2023-08-29] MEDS: GENTAMICIN SO4 0.1% TOPICAL OINTMENT 15 GM/TUBE TUBE TP SCH (22:43)
[2023-08-29] MEDS: ATORVASTATIN CA 10 MG TABLET (FP) PO SCH (22:43)
[2023-08-29] MEDS: SENNOSIDES 8.6MG TABLET (FP) PO SCH (22:43)
[2023-08-30] MEDS: HYDROmorphone HCL 2 MG TABLET PO PRN ×3 (00:28→23:32)
[2023-08-30] MEDS: GABAPENTIN 100 MG CAPSULE PO SCH (06:03)
[2023-08-30] MEDS: DOCUSATE SODIUM 100 MG CAPSULE (FP) PO SCH ×3 (06:03→22:03)
[2023-08-30] MEDS: ACETAMINOPHEN 500 MG TABLET (FP) PO PRN (06:03)
[2023-08-30] MEDS: INSULIN SLIDING SCALE (NOVOLOG) 1 VIAL SQ SCH ×4 (07:23→22:19)
[2023-08-30] MEDS: AMINO ACIDS/PROTEIN HYDROLYS 30 ML LIQUID.PKT PO SCH ×2 (08:57→17:08)
[2023-08-30] MEDS ORDERED: AMMONIUM LACTATE 12% LOTION 225 GM BOTTLE TP PRN (09:24)
[2023-08-30] MEDS: DULoxetine HCL 30 MG CAPSULE.DR PO SCH (09:34)
[2023-08-30] MEDS: ASCORBIC ACID 500 MG TABLET (FP) PO SCH (09:35)
[2023-08-30] MEDS: amLODIPine BESYLATE 5 MG TABLET (FP) PO SCH (09:35)
[2023-08-30] MEDS: VALSARTAN 80 MG TABLET PO SCH ×2 (09:35→22:03)
[2023-08-30] MEDS: PANTOPRAZOLE 40 MG TABLET PO SCH (09:35)
[2023-08-30] MEDS: MULTIVITAMINS (DAILY MVI) TABLET (FP) PO SCH (09:35)
[2023-08-30] MEDS: GENTAMICIN SO4 0.1% TOPICAL OINTMENT 15 GM/TUBE TUBE TP SCH ×2 (09:36→22:03)
[2023-08-30] MEDS: ENOXAPARIN NA (PORCINE) 80 MG/0.8 ML DISP.SYRIN SQ SCH ×2 (09:36→22:03)
[2023-08-30] MEDS ORDERED: WARFARIN NA 5 MG TABLET PO ONE (13:00)
[2023-08-30] MEDS: GABAPENTIN 300 MG CAPSULE PO SCH ×2 (13:32→22:03)
[2023-08-30] MEDS: SENNOSIDES 8.6MG TABLET (FP) PO SCH (22:03)
[2023-08-30] MEDS: ATORVASTATIN CA 10 MG TABLET (FP) PO SCH (22:03)
[2023-08-31] MEDS: DOCUSATE SODIUM 100 MG CAPSULE (FP) PO SCH ×3 (06:06→22:14)
[2023-08-31] MEDS: GABAPENTIN 300 MG CAPSULE PO SCH ×3 (06:06→22:14)
[2023-08-31] MEDS: AMINO ACIDS/PROTEIN HYDROLYS 30 ML LIQUID.PKT PO SCH ×2 (08:50→17:08)
[2023-08-31] MEDS: GENTAMICIN SO4 0.1% TOPICAL OINTMENT 15 GM/TUBE TUBE TP SCH ×3 (09:31→22:15)
[2023-08-31 09:45] LABS: INR 1.16 (0.83-1.09); PROTHROMBIN TIME (PATIENT) 13.4 SEC (9.7-13.0)
[2023-08-31] MEDS: PANTOPRAZOLE 40 MG TABLET PO SCH (09:51)
[2023-08-31] MEDS: amLODIPine BESYLATE 5 MG TABLET (FP) PO SCH (09:51)
[2023-08-31] MEDS: ENOXAPARIN NA (PORCINE) 80 MG/0.8 ML DISP.SYRIN SQ SCH ×2 (09:51→22:23)
[2023-08-31] MEDS: HYDROmorphone HCL 2 MG TABLET PO PRN (09:51)
[2023-08-31] MEDS: ASCORBIC ACID 500 MG TABLET (FP) PO SCH (09:51)
[2023-08-31] MEDS: VALSARTAN 80 MG TABLET PO SCH ×2 (09:52→22:14)
[2023-08-31] MEDS: MULTIVITAMINS (DAILY MVI) TABLET (FP) PO SCH (09:52)
[2023-08-31] MEDS: DULoxetine HCL 30 MG CAPSULE.DR PO SCH (09:52)
[2023-08-31 09:56] LABS: HEMATOCRIT 25.4 % (32.4-45.2); HEMOGLOBIN 8.3 GM/dL (10.7-15.3); MCHC 32.6 g/dl (32.0-36.0); MEAN CELL VOLUME 85.8 fl (80-96); MEAN PLT VOLUME 8.2 fl (7.5-11.1); PLATELET COUNT 628 10^3/uL (134-434); RBC 2.96 M/mm3 (3.60-5.2); RDW 15.7 % (11.6-15.6); WHITE BLOOD COUNT 7.8 K/mm3 (4.0-10.0)
[2023-08-31 10:00] LABS: POTASSIUM 4.3 mmol/L (3.5-5.1)
[2023-08-31 10:04] LABS: CALCIUM 9.4 mg/dL (8.5-10.1)
[2023-08-31 10:07] LABS: BLOOD UREA NITROGEN 14.1 mg/dL (7-18)
[2023-08-31 10:10] LABS: CREATININE 0.4 mg/dL (0.55-1.3)
[2023-08-31 10:11] LABS: BILIRUBIN,TOTAL 0.1 mg/dL (0.2-1)
[2023-08-31 10:12] LABS: TOT PROT 5.6 g/dl (6.4-8.2)
[2023-08-31] MEDS: INSULIN SLIDING SCALE (NOVOLOG) 1 VIAL SQ SCH ×4 (11:48→22:24)
[2023-08-31] MEDS: ACETAMINOPHEN 500 MG TABLET (FP) PO PRN (14:04)
[2023-08-31] MEDS: WARFARIN NA 5 MG TABLET PO SCH (17:08)
[2023-08-31 21:14] VITALS: RESP 18
[2023-08-31] MEDS: ATORVASTATIN CA 10 MG TABLET (FP) PO SCH (22:14)
[2023-08-31] MEDS: SENNOSIDES 8.6MG TABLET (FP) PO SCH (22:14)
[2023-09-01] MEDS: HYDROmorphone HCL 2 MG TABLET PO PRN (01:08)
[2023-09-01] MEDS: DOCUSATE SODIUM 100 MG CAPSULE (FP) PO SCH ×3 (05:54→21:16)
[2023-09-01] MEDS: GABAPENTIN 300 MG CAPSULE PO SCH ×3 (05:54→21:16)
[2023-09-01] MEDS: ACETAMINOPHEN 500 MG TABLET (FP) PO PRN ×2 (05:54→13:58)
[2023-09-01] MEDS: INSULIN SLIDING SCALE (NOVOLOG) 1 VIAL SQ SCH ×4 (06:01→21:21)
[2023-09-01] MEDS: AMINO ACIDS/PROTEIN HYDROLYS 30 ML LIQUID.PKT PO SCH ×2 (08:49→17:23)
[2023-09-01] MEDS: ENOXAPARIN NA (PORCINE) 80 MG/0.8 ML DISP.SYRIN SQ SCH ×2 (09:07→21:15)
[2023-09-01] MEDS: ASCORBIC ACID 500 MG TABLET (FP) PO SCH (09:07)
[2023-09-01] MEDS: amLODIPine BESYLATE 5 MG TABLET (FP) PO SCH (09:07)
[2023-09-01] MEDS: PANTOPRAZOLE 40 MG TABLET PO SCH (09:07)
[2023-09-01] MEDS: MULTIVITAMINS (DAILY MVI) TABLET (FP) PO SCH (09:07)
[2023-09-01] MEDS: VALSARTAN 80 MG TABLET PO SCH ×2 (09:07→21:16)
[2023-09-01] MEDS: DULoxetine HCL 30 MG CAPSULE.DR PO SCH (09:07)
[2023-09-01] MEDS: GENTAMICIN SO4 0.1% TOPICAL OINTMENT 15 GM/TUBE TUBE TP SCH ×2 (09:10→21:17)
[2023-09-01 09:50] LABS: HEMATOCRIT 27.1 % (32.4-45.2); HEMOGLOBIN 8.7 GM/dL (10.7-15.3); MCH 27.5 pg (25.7-33.7); MCHC 31.9 g/dl (32.0-36.0); MEAN CELL VOLUME 86.1 fl (80-96); MEAN PLT VOLUME 8.3 fl (7.5-11.1); PLATELET COUNT 704 10^3/uL (134-434); RBC 3.15 M/mm3 (3.60-5.2); RDW 16.6 % (11.6-15.6); WHITE BLOOD COUNT 7.6 K/mm3 (4.0-10.0)
[2023-09-01 09:57] LABS: INR 1.26 (0.83-1.09); PROTHROMBIN TIME (PATIENT) 14.6 SEC (9.7-13.0)
[2023-09-01] MEDS ORDERED: INSULIN (NOVOLOG) ASPART 100 UNITS/ML 10ML VIAL ONE ×2 (10:40→21:04)
[2023-09-01] MEDS: WARFARIN NA 5 MG TABLET PO SCH (17:37)
[2023-09-01] MEDS: ATORVASTATIN CA 10 MG TABLET (FP) PO SCH (21:16)
[2023-09-01] MEDS: SENNOSIDES 8.6MG TABLET (FP) PO SCH (21:16)
[2023-09-02] MEDS: HYDROmorphone HCL 2 MG TABLET PO PRN ×2 (00:23→09:45)
[2023-09-02] MEDS: ACETAMINOPHEN 500 MG TABLET (FP) PO PRN ×2 (03:19→14:23)
[2023-09-02] MEDS: GABAPENTIN 300 MG CAPSULE PO SCH ×2 (06:00→13:02)
[2023-09-02] MEDS: DOCUSATE SODIUM 100 MG CAPSULE (FP) PO SCH ×2 (06:01→13:02)
[2023-09-02] MEDS: INSULIN SLIDING SCALE (NOVOLOG) 1 VIAL SQ SCH ×2 (06:15→11:01)
[2023-09-02] MEDS: AMINO ACIDS/PROTEIN HYDROLYS 30 ML LIQUID.PKT PO SCH (07:59)
[2023-09-02] MEDS: GENTAMICIN SO4 0.1% TOPICAL OINTMENT 15 GM/TUBE TUBE TP SCH (09:08)
[2023-09-02] MEDS: MULTIVITAMINS (DAILY MVI) TABLET (FP) PO SCH (09:44)
[2023-09-02] MEDS: DULoxetine HCL 30 MG CAPSULE.DR PO SCH (09:44)
[2023-09-02] MEDS: VALSARTAN 80 MG TABLET PO SCH (09:44)
[2023-09-02] MEDS: amLODIPine BESYLATE 5 MG TABLET (FP) PO SCH (09:44)
[2023-09-02] MEDS: ASCORBIC ACID 500 MG TABLET (FP) PO SCH (09:44)
[2023-09-02] MEDS: PANTOPRAZOLE 40 MG TABLET PO SCH (09:44)
[2023-09-02] MEDS: ENOXAPARIN NA (PORCINE) 80 MG/0.8 ML DISP.SYRIN SQ SCH (09:45)
[2023-09-02 11:04] LABS: INR 1.44 (0.83-1.09); PROTHROMBIN TIME (PATIENT) 16.6 SEC (9.7-13.0)
[2023-09-02] MEDS: FENTANYL PATCH WASTE TD PRN (13:15)
[2023-09-02 14:30] VITALS: BP 144/60; PULSE 83; TEMP 98.2
== END 2023-09-02 14:55 | disposition home health service (06) | DRG 240 ==
LOC: JER 13:13 → JERBED 16:08 → J8W 08-05 08:30 → J6S 08-30 13:25
PROVIDERS: ADMIT Family Medicine; ATTEND Family Medicine
PROC: 0JBQ0ZZ Excision of Right Foot Subcutaneous Tissue and Fascia, Open Approach (ICD-10-PCS; 2023-08-08)
PROC: 0Y6M0ZB Detachment at Right Foot, Partial 2nd Ray, Open Approach (ICD-10-PCS; 2023-08-15)
PROC: 0Y6M0ZC Detachment at Right Foot, Partial 3rd Ray, Open Approach (ICD-10-PCS; 2023-08-15)
PROC: 0Y6M0ZD Detachment at Right Foot, Partial 4th Ray, Open Approach (ICD-10-PCS; 2023-08-15)
PROC: 0Y6M0ZF Detachment at Right Foot, Partial 5th Ray, Open Approach (ICD-10-PCS; 2023-08-15)
PROC: 0L8N0ZZ Division of Right Lower Leg Tendon, Open Approach (ICD-10-PCS; 2023-08-15)
PROC: 0Y6M0Z9 Detachment at Right Foot, Partial 1st Ray, Open Approach (ICD-10-PCS; principal; 2023-08-15 11:30)
PROC: 0Y6H0Z1 Detachment at Right Lower Leg, High, Open Approach (ICD-10-PCS; 2023-08-25)
PROC: 30233R1 Transfusion of Nonautologous Platelets into Peripheral Vein, Percutaneous Approach (ICD-10-PCS; 2023-08-26)
PROC: 30233N1 Transfusion of Nonautologous Red Blood Cells into Peripheral Vein, Percutaneous Approach (ICD-10-PCS; 2023-08-26)
DX: E11.52 Type 2 diabetes mellitus with diabetic peripheral angiopathy with gangrene (principal); D62 Acute posthemorrhagic anemia; T87.43 Infection of amputation stump, right lower extremity; L03.115 Cellulitis of right lower limb; I96 Gangrene, not elsewhere classified; I10 Essential (primary) hypertension; Y83.5 Amputation of limb(s) as the cause of abnormal reaction of the patient, or of later complication, without mention of misadventure at the time of the procedure; E78.5 Hyperlipidemia, unspecified; Z86.73 Personal history of transient ischemic attack (TIA), and cerebral infarction without residual deficits; Z95.0 Presence of cardiac pacemaker; D64.9 Anemia, unspecified; Z79.84 Long term (current) use of oral hypoglycemic drugs
CPT/HCPCS: 36415; 36430; 73610-TC-RT-FY; 73630-TC-RT-FY; 80048; 80053; 82962; 83540; 83550; 83735; 84443; 85025; 85027; 85610; 85651; 85730; 86140; 86850; 86900; 86901; 86922; 87040; 87070; 87075; 87186; 87205; 87635; 88304-TC; 88305-TC; 88307-TC; 88311-TC; 93005; 93010; 93926-TC; 94760; 97116-GP; 97161-GP; 99285-25; G0277; G0480; J1756; P9034; P9038; P9058

== ENCOUNTER 2023-09-12 15:09 | Inpatient (IN) | payer OTHER, BC ==
[2023-09-12] MEDS ORDERED: VANCOMYCIN 1 GM PREMIX - 1 GM/200 ML BAG IVPB ONE (16:43)
[2023-09-12] MEDS ORDERED: ACETAMINOPHEN 1000 MG/100 ML BAG IVPB ONE (16:43)
[2023-09-12] MEDS ORDERED: ACETAMINOPHEN INJECTION 100 ML IVPB ONE (16:56)
[2023-09-12] MEDS ORDERED: VANCOMYCIN 1 GRAM (PRE-DOCKED) 1,000 MG/250 ML BAG IVPB ONE (16:57)
[2023-09-12 17:42] LABS: HEMOGLOBIN 7.9 GM/dL (10.7-15.3); MCH 27.3 pg (25.7-33.7); MCHC 31.5 g/dl (32.0-36.0); MEAN CELL VOLUME 86.6 fl (80-96); MEAN PLT VOLUME 8.7 fl (7.5-11.1); PLATELET COUNT 911 10^3/uL (134-434); RBC 2.88 M/mm3 (3.60-5.2); RDW 17.1 % (11.6-15.6)
[2023-09-12 17:51] LABS: POTASSIUM 4.7 mmol/L (3.5-5.1)
[2023-09-12 17:53] LABS: CALCIUM 9.3 mg/dL (8.5-10.1)
[2023-09-12 17:57] LABS: CREATININE 0.7 mg/dL (0.55-1.3)
[2023-09-12 17:59] LABS: BILIRUBIN,TOTAL 0.2 mg/dL (0.2-1); TOT PROT 6.7 g/dl (6.4-8.2)
[2023-09-12 18:01] LABS: ALBUMIN 2.4 g/dl (3.4-5.0)
[2023-09-12 18:17] LABS: INR 2.45 (0.83-1.09); PROTHROMBIN TIME (PATIENT) 28.2 SEC (9.7-13.0)
[2023-09-12 18:24] LABS: ACTIVATED PTT 49.8 SECONDS (25.2-36.5)
[2023-09-12] MEDS ORDERED: AZTREONAM 1 GM in DEXTROSE 5%-WATER - 50 ML IVPB ONE (18:24)
[2023-09-12 18:28] LABS: ANISOCYTOSIS 1+; MACROCYTOSIS 0
[2023-09-12] MEDS ORDERED: ENOXAPARIN NA (PORCINE) 30 MG/0.3 ML DISP.SYRIN SQ SCH (20:15)
[2023-09-12] MEDS ORDERED: AZTREONAM 1 GM VIAL (RESTRICTED TO ID) ONE (20:20)
[2023-09-12] MEDS ORDERED: INSULIN (NOVOLOG) ASPART 100 UNITS/ML 10ML VIAL ONE (22:03)
[2023-09-12] MEDS: ACETAMINOPHEN 1000 MG/100 ML BAG IVPB PRN (22:10)
[2023-09-12] MEDS: VALSARTAN 80 MG TABLET PO SCH (22:11)
[2023-09-12] MEDS: ATORVASTATIN CA 10 MG TABLET (FP) PO SCH (22:11)
[2023-09-12] MEDS: GABAPENTIN 100 MG CAPSULE PO SCH (22:11)
[2023-09-13] MEDS ORDERED: WARFARIN NA 5 MG TABLET PO ONE (00:03)
[2023-09-13 00:08] VITALS: BMI 33.0
[2023-09-13] MEDS: GABAPENTIN 100 MG CAPSULE PO SCH ×3 (05:42→22:13)
[2023-09-13] MEDS ORDERED: AZTREONAM 1 GM in DEXTROSE 5%-WATER - 50 ML IVPB SCH (08:30)
[2023-09-13 09:38] LABS: HEMATOCRIT 26.6 % (32.4-45.2); HEMOGLOBIN 8.9 GM/dL (10.7-15.3); MCH 28.7 pg (25.7-33.7); MCHC 33.4 g/dl (32.0-36.0); MEAN CELL VOLUME 85.9 fl (80-96); MEAN PLT VOLUME 7.4 fl (7.5-11.1); PLATELET COUNT 744 10^3/uL (134-434); RBC 3.09 M/mm3 (3.60-5.2); RDW 16.1 % (11.6-15.6); WHITE BLOOD COUNT 8.1 K/mm3 (4.0-10.0)
[2023-09-13 09:44] LABS: INR 2.16 (0.83-1.09); PROTHROMBIN TIME (PATIENT) 24.9 SEC (9.7-13.0)
[2023-09-13] MEDS: ACETAMINOPHEN 1000 MG/100 ML BAG IVPB PRN (09:56)
[2023-09-13 09:59] LABS: POTASSIUM 4.4 mmol/L (3.5-5.1)
[2023-09-13 10:13] LABS: BLOOD UREA NITROGEN 17.9 mg/dL (7-18); CALCIUM 9.7 mg/dL (8.5-10.1); MAGNESIUM 2.1 mg/dL (1.8-2.4)
[2023-09-13 10:16] LABS: CREATININE 0.6 mg/dL (0.55-1.3)
[2023-09-13] MEDS: amLODIPine BESYLATE 2.5 MG TABLET (FP) PO SCH (10:48)
[2023-09-13] MEDS: VALSARTAN 80 MG TABLET PO SCH ×2 (10:48→22:13)
[2023-09-13] MEDS: NEBIVOLOL 10 MG TABLET (FP) PO SCH (10:48)
[2023-09-13] MEDS: VANCOMYCIN/WATER FOR INJ (PEG) 1,000 MG/200 ML BAG IVPB SCH (16:58)
[2023-09-13] MEDS: AZTREONAM 1 GM in DEXTROSE 5%-WATER - 50 ML IVPB SCH (17:16)
[2023-09-13] MEDS: WARFARIN NA 5 MG TABLET PO SCH (17:16)
[2023-09-13] MEDS ORDERED: VANCOMYCIN/WATER FOR INJ (PEG) 1,000 MG/200 ML BAG IVPB SCH (18:00)
[2023-09-13] MEDS: ATORVASTATIN CA 10 MG TABLET (FP) PO SCH (22:13)
[2023-09-14] MEDS: AZTREONAM 1 GM in DEXTROSE 5%-WATER - 50 ML IVPB SCH ×3 (02:55→18:34)
[2023-09-14] MEDS: GABAPENTIN 100 MG CAPSULE PO SCH ×3 (05:45→21:44)
[2023-09-14] MEDS: VANCOMYCIN/WATER FOR INJ (PEG) 1,000 MG/200 ML BAG IVPB SCH ×2 (05:45→18:35)
[2023-09-14] MEDS: NEBIVOLOL 10 MG TABLET (FP) PO SCH (09:45)
[2023-09-14] MEDS: amLODIPine BESYLATE 2.5 MG TABLET (FP) PO SCH (09:45)
[2023-09-14] MEDS: VALSARTAN 80 MG TABLET PO SCH ×2 (09:46→21:44)
[2023-09-14] MEDS ORDERED: AZTREONAM 1 GM in DEXTROSE 5%-WATER - 50 ML IVPB SCH (10:00)
[2023-09-14] MEDS ORDERED: VANCOMYCIN/WATER FOR INJ (PEG) 1,000 MG/200 ML BAG IVPB SCH (18:00)
[2023-09-14 19:36] LABS: INR 3.6 (0.83-1.09); PROTHROMBIN TIME (PATIENT) 41.2 SEC (9.7-13.0)
[2023-09-14] MEDS: WARFARIN NA 5 MG TABLET PO SCH (20:26)
[2023-09-14] MEDS: oxyCODONE HCL 5 MG TABLET PO PRN (20:27)
[2023-09-14] MEDS: ATORVASTATIN CA 10 MG TABLET (FP) PO SCH (21:45)
[2023-09-15] MEDS: AZTREONAM 1 GM in DEXTROSE 5%-WATER - 50 ML IVPB SCH ×3 (01:48→17:29)
[2023-09-15] MEDS: VANCOMYCIN/WATER FOR INJ (PEG) 1,000 MG/200 ML BAG IVPB SCH ×3 (05:55→20:33)
[2023-09-15] MEDS: GABAPENTIN 100 MG CAPSULE PO SCH ×3 (05:56→22:06)
[2023-09-15] MEDS: VALSARTAN 80 MG TABLET PO SCH ×2 (09:48→22:06)
[2023-09-15] MEDS: amLODIPine BESYLATE 2.5 MG TABLET (FP) PO SCH (09:48)
[2023-09-15] MEDS: NEBIVOLOL 10 MG TABLET (FP) PO SCH (09:48)
[2023-09-15 09:54] LABS: INR 2.71 (0.83-1.09); PROTHROMBIN TIME (PATIENT) 31.1 SEC (9.7-13.0)
[2023-09-15] MEDS: GENTAMICIN SO4 0.1% TOPICAL OINTMENT 15 GM/TUBE TUBE TP SCH ×2 (11:14→22:08)
[2023-09-15] MEDS: oxyCODONE HCL 5 MG TABLET PO PRN (11:31)
[2023-09-15] MEDS: AMMONIUM LACTATE 12% LOTION 225 GM BOTTLE TP SCH ×2 (14:53→23:28)
[2023-09-15] MEDS: WARFARIN NA 5 MG TABLET PO SCH (17:25)
[2023-09-15] MEDS ORDERED: ACETAMINOPHEN 1000 MG/100 ML BAG IVPB PRN (17:39)
[2023-09-15] MEDS: ATORVASTATIN CA 10 MG TABLET (FP) PO SCH (22:06)
[2023-09-16] MEDS: AZTREONAM 1 GM in DEXTROSE 5%-WATER - 50 ML IVPB SCH ×3 (01:58→19:54)
[2023-09-16] MEDS: GABAPENTIN 100 MG CAPSULE PO SCH ×2 (05:52→13:21)
[2023-09-16] MEDS: VALSARTAN 80 MG TABLET PO SCH ×2 (10:12→21:56)
[2023-09-16] MEDS: amLODIPine BESYLATE 2.5 MG TABLET (FP) PO SCH (10:13)
[2023-09-16] MEDS: NEBIVOLOL 10 MG TABLET (FP) PO SCH (11:39)
[2023-09-16] MEDS: AMMONIUM LACTATE 12% LOTION 225 GM BOTTLE TP SCH ×2 (11:39→22:00)
[2023-09-16] MEDS: GENTAMICIN SO4 0.1% TOPICAL OINTMENT 15 GM/TUBE TUBE TP SCH ×2 (13:31→23:45)
[2023-09-16] MEDS: WARFARIN NA 5 MG TABLET PO SCH (18:00)
[2023-09-16] MEDS: oxyCODONE HCL 5 MG TABLET PO PRN (19:21)
[2023-09-16] MEDS: GABAPENTIN 300 MG CAPSULE PO SCH (21:56)
[2023-09-16] MEDS: ATORVASTATIN CA 10 MG TABLET (FP) PO SCH (21:57)
[2023-09-17] MEDS: AZTREONAM 1 GM in DEXTROSE 5%-WATER - 50 ML IVPB SCH ×3 (03:03→17:49)
[2023-09-17] MEDS: oxyCODONE HCL 5 MG TABLET PO PRN ×3 (03:21→21:46)
[2023-09-17] MEDS: GABAPENTIN 300 MG CAPSULE PO SCH ×3 (06:05→21:46)
[2023-09-17 09:42] LABS: HEMATOCRIT 30.1 % (32.4-45.2); HEMOGLOBIN 9.5 GM/dL (10.7-15.3); MCH 27.5 pg (25.7-33.7); MCHC 31.6 g/dl (32.0-36.0); MEAN CELL VOLUME 87.1 fl (80-96); MEAN PLT VOLUME 7.3 fl (7.5-11.1); PLATELET COUNT 749 10^3/uL (134-434); RBC 3.45 M/mm3 (3.60-5.2); RDW 16.7 % (11.6-15.6); WHITE BLOOD COUNT 7.9 K/mm3 (4.0-10.0)
[2023-09-17 09:43] LABS: INR 2.55 (0.83-1.09); PROTHROMBIN TIME (PATIENT) 29.3 SEC (9.7-13.0)
[2023-09-17 10:02] LABS: POTASSIUM 3.9 mmol/L (3.5-5.1)
[2023-09-17 10:10] LABS: CALCIUM 9.7 mg/dL (8.5-10.1)
[2023-09-17 10:11] LABS: ALBUMIN 2.5 g/dl (3.4-5.0); BLOOD UREA NITROGEN 17.6 mg/dL (7-18)
[2023-09-17 10:14] LABS: CREATININE 0.6 mg/dL (0.55-1.3)
[2023-09-17 10:15] LABS: TOT PROT 6.4 g/dl (6.4-8.2)
[2023-09-17 10:16] LABS: BILIRUBIN,TOTAL 0.3 mg/dL (0.2-1)
[2023-09-17] MEDS: VALSARTAN 80 MG TABLET PO SCH ×2 (10:26→21:46)
[2023-09-17] MEDS: amLODIPine BESYLATE 2.5 MG TABLET (FP) PO SCH (10:26)
[2023-09-17] MEDS: AMMONIUM LACTATE 12% LOTION 225 GM BOTTLE TP SCH ×2 (10:28→21:48)
[2023-09-17] MEDS: GENTAMICIN SO4 0.1% TOPICAL OINTMENT 15 GM/TUBE TUBE TP SCH ×2 (10:29→21:48)
[2023-09-17] MEDS: NEBIVOLOL 10 MG TABLET (FP) PO SCH (10:31)
[2023-09-17] MEDS ORDERED: VANCOMYCIN PREMIX 1.5 GM 1,500 MG/300 ML BAG IVPB SCH (11:30)
[2023-09-17] MEDS: WARFARIN NA 5 MG TABLET PO SCH (17:49)
[2023-09-17] MEDS: HYDROmorphone HCl 2 MG/ML VIAL IVPUSH PRN (18:06)
[2023-09-17] MEDS: ATORVASTATIN CA 10 MG TABLET (FP) PO SCH (21:46)
[2023-09-18] MEDS: AZTREONAM 1 GM in DEXTROSE 5%-WATER - 50 ML IVPB SCH ×3 (01:42→19:02)
[2023-09-18] MEDS ORDERED: INSULIN (NOVOLOG) ASPART 100 UNITS/ML 10ML VIAL ONE (06:04)
[2023-09-18] MEDS: GABAPENTIN 300 MG CAPSULE PO SCH ×3 (06:19→22:35)
[2023-09-18] MEDS: VALSARTAN 80 MG TABLET PO SCH ×2 (10:14→22:35)
[2023-09-18] MEDS: amLODIPine BESYLATE 2.5 MG TABLET (FP) PO SCH (10:15)
[2023-09-18] MEDS: oxyCODONE HCL 5 MG TABLET PO PRN ×2 (10:15→22:35)
[2023-09-18] MEDS: GENTAMICIN SO4 0.1% TOPICAL OINTMENT 15 GM/TUBE TUBE TP SCH ×2 (10:16→22:37)
[2023-09-18] MEDS: AMMONIUM LACTATE 12% LOTION 225 GM BOTTLE TP SCH ×2 (10:16→22:37)
[2023-09-18] MEDS: NEBIVOLOL 10 MG TABLET (FP) PO SCH (10:19)
[2023-09-18] MEDS: HYDROmorphone HCl 2 MG/ML VIAL IVPUSH PRN (12:19)
[2023-09-18] MEDS ORDERED: VANCOMYCIN PREMIX 1.5 GM 1,500 MG/300 ML BAG IVPB SCH (13:00)
[2023-09-18] MEDS ORDERED: PHYTONADIONE 10 MG/1 ML AMP IVPB ONE (14:45)
[2023-09-18 16:03] LABS: INR 3.34 (0.83-1.09); PROTHROMBIN TIME (PATIENT) 38.3 SEC (9.7-13.0)
[2023-09-18 19:50] VITALS: RESP 18
[2023-09-18] MEDS: ATORVASTATIN CA 10 MG TABLET (FP) PO SCH (22:35)
[2023-09-18] MEDS: metroNIDAZOLE 250 MG TABLET PO SCH (22:35)
[2023-09-19] MEDS: AZTREONAM 1 GM in DEXTROSE 5%-WATER - 50 ML IVPB SCH ×2 (01:59→11:22)
[2023-09-19] MEDS: oxyCODONE HCL 5 MG TABLET PO PRN (05:56)
[2023-09-19] MEDS: GABAPENTIN 300 MG CAPSULE PO SCH (05:56)
[2023-09-19 07:11] VITALS: BP 157/56; PULSE 59; TEMP 97.9
[2023-09-19] MEDS: VALSARTAN 80 MG TABLET PO SCH (11:23)
[2023-09-19] MEDS: NEBIVOLOL 10 MG TABLET (FP) PO SCH (11:23)
[2023-09-19] MEDS: AMMONIUM LACTATE 12% LOTION 225 GM BOTTLE TP SCH (11:23)
[2023-09-19] MEDS: amLODIPine BESYLATE 2.5 MG TABLET (FP) PO SCH (11:23)
[2023-09-19] MEDS: GENTAMICIN SO4 0.1% TOPICAL OINTMENT 15 GM/TUBE TUBE TP SCH (11:23)
[2023-09-19] MEDS: metroNIDAZOLE 250 MG TABLET PO SCH (11:23)
[2023-09-19] MEDS ORDERED: VANCOMYCIN/WATER 1250 MG 1,250 MG/250 ML BAG IVPB SCH (15:00)
== END 2023-09-19 11:45 | DRG 565 ==
LOC: JER 15:09 → JERBED 17:47 → J8W 20:43
PROVIDERS: ADMIT Internal Medicine; ATTEND Family Medicine
PROC: 30233N1 Transfusion of Nonautologous Red Blood Cells into Peripheral Vein, Percutaneous Approach (ICD-10-PCS; 2023-09-12)
PROC: 0HBHXZZ Excision of Right Upper Leg Skin, External Approach (ICD-10-PCS; principal; 2023-09-17)
PROC: 05HY33Z Insertion of Infusion Device into Upper Vein, Percutaneous Approach (ICD-10-PCS; 2023-09-19)
DX: T87.43 Infection of amputation stump, right lower extremity (principal); E11.52 Type 2 diabetes mellitus with diabetic peripheral angiopathy with gangrene; I96 Gangrene, not elsewhere classified; Y83.9 Surgical procedure, unspecified as the cause of abnormal reaction of the patient, or of later complication, without mention of misadventure at the time of the procedure; E78.5 Hyperlipidemia, unspecified; D64.9 Anemia, unspecified; D72.829 Elevated white blood cell count, unspecified; I10 Essential (primary) hypertension
CPT/HCPCS: 36415; 36430; 36569; 73564-TC-RT-FY; 73702-TC-RT; 77001-TC-FY; 80048; 80053; 82962; 83735; 85025; 85027; 85610; 85730; 86140; 86850; 86900; 86901; 86922; 87040; 87070; 87077; 87205; 87635; 93005; 93010; 99285-25; C1751; G0480; P9058; Q9967

== ENCOUNTER 2023-09-30 14:49 | Inpatient (IN) | payer OTHER, BC ==
[2023-09-30 17:44] LABS: BASO % 0.7 % (0-2.0); EOS % 10.1 % (0-4.5); HEMATOCRIT 34.7 % (32.4-45.2); HEMOGLOBIN 11.2 GM/dL (10.7-15.3); LYMPH % 22.8 % (8-40); MCH 27.4 pg (25.7-33.7); MCHC 32.2 g/dl (32.0-36.0); MEAN CELL VOLUME 85.3 fl (80-96); MEAN PLT VOLUME 7.9 fl (7.5-11.1); MONO % 8.6 % (3.8-10.2); NEUT % 57.8 % (42.8-82.8); PLATELET COUNT 634 10^3/uL (134-434); RBC 4.06 M/mm3 (3.60-5.2); RDW 18.8 % (11.6-15.6); WHITE BLOOD COUNT 7.3 K/mm3 (4.0-10.0)
[2023-09-30 18:32] LABS: ERYTHROCYTE SEDIMENTATION RATE 47 mm/hr (0-30)
[2023-09-30] MEDS ORDERED: VANCOMYCIN HCL 1,500 MG in DEXTROSE 5%-WATER - 500 ML IVPB ONE (18:37)
[2023-09-30] MEDS ORDERED: IMIPENEM/CILASTATIN SODIUM 500 MG in SODIUM CHLORIDE 100 ML IVPB ONE (18:37)
[2023-09-30 20:17] LABS: POTASSIUM 3.4 mmol/L (3.5-5.1)
[2023-09-30 20:18] LABS: CALCIUM 9.8 mg/dL (8.5-10.1)
[2023-09-30 20:19] LABS: ALBUMIN 2.6 g/dl (3.4-5.0)
[2023-09-30 20:22] LABS: CREATININE 0.5 mg/dL (0.55-1.3)
[2023-09-30 20:24] LABS: BILIRUBIN,TOTAL 0.2 mg/dL (0.2-1); TOT PROT 6.1 g/dl (6.4-8.2)
[2023-09-30] MEDS ORDERED: VALSARTAN 80 MG TABLET ONE (21:02)
[2023-09-30] MEDS: VALSARTAN 80 MG TABLET PO SCH (21:12)
[2023-09-30] MEDS: INSULIN SLIDING SCALE (NOVOLOG) 1 VIAL SQ SCH (21:12)
[2023-09-30] MEDS ORDERED: POTASSIUM CHLORIDE TABS 20 MEQ TABLET.ER (FP) PO ONE ×2 (22:23→22:56)
[2023-10-01] MEDS ORDERED: amLODIPine BESYLATE 5 MG TABLET (FP) PO ONE (03:03)
[2023-10-01 07:41] LABS: BASO % 0.6 % (0-2.0); EOS % 5.9 % (0-4.5); HEMATOCRIT 31.5 % (32.4-45.2); LYMPH % 13.8 % (8-40); MCH 27.8 pg (25.7-33.7); MCHC 31.7 g/dl (32.0-36.0); MEAN CELL VOLUME 87.8 fl (80-96); MEAN PLT VOLUME 7.9 fl (7.5-11.1); MONO % 8.1 % (3.8-10.2); NEUT % 71.6 % (42.8-82.8); PLATELET COUNT 582 10^3/uL (134-434); RBC 3.59 M/mm3 (3.60-5.2); RDW 18.5 % (11.6-15.6); WHITE BLOOD COUNT 10.2 K/mm3 (4.0-10.0)
[2023-10-01 07:59] LABS: POTASSIUM 4.5 mmol/L (3.5-5.1)
[2023-10-01] MEDS ORDERED: VANCOMYCIN/WATER 1250 MG 1,250 MG/250 ML BAG IVPB ONE ×2 (08:00→09:39)
[2023-10-01 08:02] LABS: CALCIUM 9.7 mg/dL (8.5-10.1)
[2023-10-01 08:03] LABS: ALBUMIN 2.5 g/dl (3.4-5.0); BLOOD UREA NITROGEN 17.8 mg/dL (7-18); MAGNESIUM 1.9 mg/dL (1.8-2.4)
[2023-10-01 08:07] LABS: BILIRUBIN,TOTAL 0.4 mg/dL (0.2-1); TOT PROT 6.2 g/dl (6.4-8.2)
[2023-10-01 08:26] LABS: CREATININE 0.4 mg/dL (0.55-1.3)
[2023-10-01] MEDS: INSULIN SLIDING SCALE (NOVOLOG) 1 VIAL SQ SCH ×4 (09:37→22:03)
[2023-10-01] MEDS ORDERED: amLODIPine BESYLATE 2.5 MG TABLET (FP) ONE (09:39)
[2023-10-01] MEDS ORDERED: DULoxetine HCL 30 MG CAPSULE.DR PO ONE (09:39)
[2023-10-01] MEDS ORDERED: PANTOPRAZOLE 40 MG TABLET PO ONE (09:39)
[2023-10-01] MEDS ORDERED: VALSARTAN 80 MG TABLET ONE (09:39)
[2023-10-01] MEDS: amLODIPine BESYLATE 2.5 MG TABLET (FP) PO SCH (09:41)
[2023-10-01] MEDS: DULoxetine HCL 30 MG CAPSULE.DR PO SCH (09:41)
[2023-10-01] MEDS: VALSARTAN 80 MG TABLET PO SCH ×2 (09:41→22:00)
[2023-10-01] MEDS: PANTOPRAZOLE 40 MG TABLET PO SCH (09:41)
[2023-10-01] MEDS ORDERED: ACETAMINOPHEN 325 MG TABLET (FP) ONE (12:17)
[2023-10-01] MEDS: ACETAMINOPHEN 325 MG TABLET (FP) PO PRN (12:23)
[2023-10-01 15:54] VITALS: BMI 30.7
[2023-10-01] MEDS: MEROPENEM 1 GM in DEXTROSE 5%-WATER 100 ML IVPB SCH (17:35)
[2023-10-02] MEDS: MEROPENEM 1 GM in DEXTROSE 5%-WATER 100 ML IVPB SCH ×3 (01:20→17:37)
[2023-10-02] MEDS: INSULIN SLIDING SCALE (NOVOLOG) 1 VIAL SQ SCH ×4 (06:10→21:46)
[2023-10-02 07:31] LABS: BASO % 0.6 % (0-2.0); EOS % 6.2 % (0-4.5); HEMATOCRIT 28.3 % (32.4-45.2); LYMPH % 23.6 % (8-40); MCH 27.4 pg (25.7-33.7); MCHC 31.9 g/dl (32.0-36.0); MEAN CELL VOLUME 85.9 fl (80-96); MEAN PLT VOLUME 7.7 fl (7.5-11.1); MONO % 10.6 % (3.8-10.2); PLATELET COUNT 555 10^3/uL (134-434); RBC 3.29 M/mm3 (3.60-5.2); RDW 18.1 % (11.6-15.6); WHITE BLOOD COUNT 6.5 K/mm3 (4.0-10.0)
[2023-10-02 07:39] LABS: POTASSIUM 3.9 mmol/L (3.5-5.1)
[2023-10-02 07:46] LABS: CALCIUM 9.5 mg/dL (8.5-10.1)
[2023-10-02 07:47] LABS: BLOOD UREA NITROGEN 15.4 mg/dL (7-18)
[2023-10-02 07:48] LABS: ALBUMIN 2.4 g/dl (3.4-5.0)
[2023-10-02 07:50] LABS: CREATININE 0.5 mg/dL (0.55-1.3)
[2023-10-02 07:51] LABS: BILIRUBIN,TOTAL 0.3 mg/dL (0.2-1); TOT PROT 5.7 g/dl (6.4-8.2)
[2023-10-02] MEDS: PANTOPRAZOLE 40 MG TABLET PO SCH (09:57)
[2023-10-02] MEDS: DULoxetine HCL 30 MG CAPSULE.DR PO SCH (09:57)
[2023-10-02] MEDS: VALSARTAN 80 MG TABLET PO SCH ×2 (09:57→21:42)
[2023-10-02] MEDS: amLODIPine BESYLATE 2.5 MG TABLET (FP) PO SCH (09:57)
[2023-10-02] MEDS: VANCOMYCIN/WATER 1250 MG 1,250 MG/250 ML BAG IVPB SCH (18:19)
[2023-10-02] MEDS: ACETAMINOPHEN 325 MG TABLET (FP) PO PRN (21:41)
[2023-10-03] MEDS: MEROPENEM 1 GM in DEXTROSE 5%-WATER 100 ML IVPB SCH ×3 (01:19→18:57)
[2023-10-03] MEDS: INSULIN SLIDING SCALE (NOVOLOG) 1 VIAL SQ SCH ×3 (06:31→22:11)
[2023-10-03] MEDS: VALSARTAN 80 MG TABLET PO SCH ×2 (10:25→22:16)
[2023-10-03] MEDS: PANTOPRAZOLE 40 MG TABLET PO SCH (10:25)
[2023-10-03] MEDS: DULoxetine HCL 30 MG CAPSULE.DR PO SCH (10:25)
[2023-10-03] MEDS: amLODIPine BESYLATE 2.5 MG TABLET (FP) PO SCH (10:25)
[2023-10-03] MEDS ORDERED: MIDAZOLAM HCL 2 MG/2 ML SINGLE DOSE VIAL ONE (14:56)
[2023-10-03] MEDS ORDERED: LIDOCAINE HCL/PF 2% SDV 5ML VIAL ONE (14:56)
[2023-10-03] MEDS ORDERED: PROPOFOL 20 ML ONE (14:56)
[2023-10-03] MEDS ORDERED: FENTANYL CITRATE/PF 50 MCG/ML VIAL ONE ×3 (14:56→16:35)
[2023-10-03] MEDS ORDERED: ONDANSETRON 4 MG/2 ML VIAL ONE (14:56)
[2023-10-03] MEDS ORDERED: HYDROmorphone HCl 2 MG/ML VIAL ONE (16:16)
[2023-10-03] MEDS ORDERED: ACETAMINOPHEN INJECTION 100 ML IVPB ONE (17:28)
[2023-10-03] MEDS ORDERED: ONDANSETRON 4 MG/2 ML VIAL IVPUSH PRN (17:31)
[2023-10-03] MEDS ORDERED: ACETAMINOPHEN 1000 MG/100 ML BAG IVPB ONE (17:33)
[2023-10-03] MEDS: LABETALOL HCL 5 MG/1 ML (100MG/20 ML VIAL) IVPUSH PRN ×2 (17:36→18:04)
[2023-10-03] MEDS ORDERED: HYDROmorphone HCl 2 MG/ML VIAL IVPUSH PRN ×2 (17:40→17:41)
[2023-10-03] MEDS: ACETAMINOPHEN 1000 MG/100 ML BAG IVPB SCH (18:16)
[2023-10-03] MEDS: VANCOMYCIN/WATER 1250 MG 1,250 MG/250 ML BAG IVPB SCH (19:30)
[2023-10-03] MEDS: HEPARIN NA (PORCINE) 5,000 UNITS/ML 1ML VIAL SQ SCH (22:16)
[2023-10-03] MEDS: LACTATED RINGERS SOLUTION 1,000 ML IV SCH ×2 (22:18→23:15)
[2023-10-04] MEDS: ACETAMINOPHEN 1000 MG/100 ML BAG IVPB SCH ×3 (00:13→11:24)
[2023-10-04] MEDS: MEROPENEM 1 GM in DEXTROSE 5%-WATER 100 ML IVPB SCH ×4 (01:39→17:39)
[2023-10-04] MEDS: ACETAMINOPHEN 500 MG TABLET (FP) PO SCH ×3 (01:39→18:38)
[2023-10-04] MEDS: oxyCODONE HCL 5 MG TABLET PO PRN ×3 (04:28→20:41)
[2023-10-04] MEDS: INSULIN SLIDING SCALE (NOVOLOG) 1 VIAL SQ SCH ×5 (06:48→21:49)
[2023-10-04] MEDS: VANCOMYCIN/WATER 1250 MG 1,250 MG/250 ML BAG IVPB SCH ×2 (08:44→18:38)
[2023-10-04] MEDS: HEPARIN NA (PORCINE) 5,000 UNITS/ML 1ML VIAL SQ SCH ×2 (10:31→21:50)
[2023-10-04] MEDS: PANTOPRAZOLE 40 MG TABLET PO SCH (10:31)
[2023-10-04] MEDS: DULoxetine HCL 30 MG CAPSULE.DR PO SCH (10:31)
[2023-10-04] MEDS: amLODIPine BESYLATE 2.5 MG TABLET (FP) PO SCH (10:32)
[2023-10-04] MEDS: VALSARTAN 80 MG TABLET PO SCH ×2 (10:32→21:49)
[2023-10-04] MEDS: LACTATED RINGERS SOLUTION 1,000 ML IV SCH (12:37)
[2023-10-05] MEDS: MEROPENEM 1 GM in DEXTROSE 5%-WATER 100 ML IVPB SCH ×3 (01:27→17:25)
[2023-10-05] MEDS: LACTATED RINGERS SOLUTION 1,000 ML IV SCH ×3 (02:39→19:51)
[2023-10-05] MEDS: ACETAMINOPHEN 500 MG TABLET (FP) PO SCH ×3 (02:43→17:25)
[2023-10-05] MEDS: INSULIN SLIDING SCALE (NOVOLOG) 1 VIAL SQ SCH ×4 (06:38→22:03)
[2023-10-05 08:53] LABS: BASO % 0.5 % (0-2.0); EOS % 2.1 % (0-4.5); HEMATOCRIT 28.1 % (32.4-45.2); HEMOGLOBIN 9.1 GM/dL (10.7-15.3); LYMPH % 13.9 % (8-40); MCH 28.1 pg (25.7-33.7); MCHC 32.4 g/dl (32.0-36.0); MEAN CELL VOLUME 86.5 fl (80-96); MEAN PLT VOLUME 7.8 fl (7.5-11.1); MONO % 13.8 % (3.8-10.2); NEUT % 69.7 % (42.8-82.8); PLATELET COUNT 446 10^3/uL (134-434); RBC 3.25 M/mm3 (3.60-5.2); WHITE BLOOD COUNT 9.5 K/mm3 (4.0-10.0)
[2023-10-05 09:06] LABS: POTASSIUM 3.8 mmol/L (3.5-5.1)
[2023-10-05 09:09] LABS: CALCIUM 9.2 mg/dL (8.5-10.1)
[2023-10-05 09:10] LABS: BLOOD UREA NITROGEN 9.2 mg/dL (7-18)
[2023-10-05 09:13] LABS: CREATININE 0.5 mg/dL (0.55-1.3)
[2023-10-05] MEDS: VALSARTAN 80 MG TABLET PO SCH ×2 (09:35→22:02)
[2023-10-05] MEDS: amLODIPine BESYLATE 2.5 MG TABLET (FP) PO SCH (09:35)
[2023-10-05] MEDS: PANTOPRAZOLE 40 MG TABLET PO SCH (09:35)
[2023-10-05] MEDS: oxyCODONE HCL 5 MG TABLET PO PRN ×2 (09:35→22:02)
[2023-10-05] MEDS: HEPARIN NA (PORCINE) 5,000 UNITS/ML 1ML VIAL SQ SCH ×2 (09:35→22:02)
[2023-10-05] MEDS: DULoxetine HCL 30 MG CAPSULE.DR PO SCH (09:35)
[2023-10-05] MEDS: VANCOMYCIN/WATER 1250 MG 1,250 MG/250 ML BAG IVPB SCH (18:36)
[2023-10-06] MEDS: MEROPENEM 1 GM in DEXTROSE 5%-WATER 100 ML IVPB SCH ×3 (01:49→17:26)
[2023-10-06] MEDS: INSULIN SLIDING SCALE (NOVOLOG) 1 VIAL SQ SCH ×4 (06:06→22:32)
[2023-10-06] MEDS: oxyCODONE HCL 5 MG TABLET PO PRN ×3 (06:07→22:15)
[2023-10-06] MEDS: VALSARTAN 80 MG TABLET PO SCH ×2 (09:28→22:15)
[2023-10-06] MEDS: HEPARIN NA (PORCINE) 5,000 UNITS/ML 1ML VIAL SQ SCH ×2 (09:29→22:15)
[2023-10-06] MEDS: amLODIPine BESYLATE 2.5 MG TABLET (FP) PO SCH (09:29)
[2023-10-06] MEDS: DULoxetine HCL 30 MG CAPSULE.DR PO SCH (09:29)
[2023-10-06] MEDS: PANTOPRAZOLE 40 MG TABLET PO SCH (09:29)
[2023-10-07] MEDS: LACTATED RINGERS SOLUTION 1,000 ML IV SCH (03:31)
[2023-10-07] MEDS: oxyCODONE HCL 5 MG TABLET PO PRN ×3 (03:32→21:56)
[2023-10-07] MEDS: INSULIN SLIDING SCALE (NOVOLOG) 1 VIAL SQ SCH ×4 (06:22→21:58)
[2023-10-07] MEDS: AMINO ACIDS/PROTEIN HYDROLYS 30 ML LIQUID.PKT PO SCH (07:57)
[2023-10-07] MEDS: VALSARTAN 80 MG TABLET PO SCH ×2 (10:12→21:56)
[2023-10-07] MEDS: PANTOPRAZOLE 40 MG TABLET PO SCH (10:12)
[2023-10-07] MEDS: amLODIPine BESYLATE 2.5 MG TABLET (FP) PO SCH (10:12)
[2023-10-07] MEDS: DULoxetine HCL 30 MG CAPSULE.DR PO SCH (10:12)
[2023-10-07] MEDS: HEPARIN NA (PORCINE) 5,000 UNITS/ML 1ML VIAL SQ SCH ×2 (10:13→21:54)
[2023-10-07] MEDS: ACETAMINOPHEN 500 MG TABLET (FP) PO SCH (21:55)
[2023-10-08] MEDS: INSULIN SLIDING SCALE (NOVOLOG) 1 VIAL SQ SCH ×4 (06:33→22:02)
[2023-10-08] MEDS: AMINO ACIDS/PROTEIN HYDROLYS 30 ML LIQUID.PKT PO SCH (09:42)
[2023-10-08] MEDS: amLODIPine BESYLATE 2.5 MG TABLET (FP) PO SCH (09:42)
[2023-10-08] MEDS: ACETAMINOPHEN 500 MG TABLET (FP) PO SCH ×2 (09:42→21:52)
[2023-10-08] MEDS: HEPARIN NA (PORCINE) 5,000 UNITS/ML 1ML VIAL SQ SCH ×2 (09:42→21:53)
[2023-10-08] MEDS: PANTOPRAZOLE 40 MG TABLET PO SCH (09:43)
[2023-10-08] MEDS: VALSARTAN 80 MG TABLET PO SCH ×2 (09:43→21:52)
[2023-10-08] MEDS: DULoxetine HCL 30 MG CAPSULE.DR PO SCH (09:43)
[2023-10-08] MEDS ORDERED: REMDESIVIR 200 MG in SODIUM CHLORIDE 250 ML IVPB ONE (11:00)
[2023-10-08] MEDS: oxyCODONE HCL 5 MG TABLET PO PRN (15:47)
[2023-10-09] MEDS: INSULIN SLIDING SCALE (NOVOLOG) 1 VIAL SQ SCH ×4 (06:15→21:48)
[2023-10-09] MEDS: oxyCODONE HCL 5 MG TABLET PO PRN (06:16)
[2023-10-09] MEDS: DULoxetine HCL 30 MG CAPSULE.DR PO SCH (09:43)
[2023-10-09] MEDS: AMINO ACIDS/PROTEIN HYDROLYS 30 ML LIQUID.PKT PO SCH (09:43)
[2023-10-09] MEDS: VALSARTAN 80 MG TABLET PO SCH ×2 (09:43→21:23)
[2023-10-09] MEDS: PANTOPRAZOLE 40 MG TABLET PO SCH (09:43)
[2023-10-09] MEDS: amLODIPine BESYLATE 5 MG TABLET (FP) PO SCH (09:43)
[2023-10-09] MEDS: ENOXAPARIN NA (PORCINE) 80 MG/0.8 ML DISP.SYRIN SQ SCH ×2 (09:44→21:21)
[2023-10-09] MEDS: NEBIVOLOL 10 MG TABLET (FP) PO SCH (09:44)
[2023-10-09] MEDS: ACETAMINOPHEN 500 MG TABLET (FP) PO SCH ×2 (09:44→21:22)
[2023-10-09] MEDS ORDERED: REMDESIVIR 200 MG in SODIUM CHLORIDE 250 ML IVPB ONE (10:00)
[2023-10-09] MEDS: REMDESIVIR 100 MG in SODIUM CHLORIDE 250 ML IVPB SCH (10:01)
[2023-10-09 22:14] LABS: INR 1.09 (0.83-1.09); PROTHROMBIN TIME (PATIENT) 12.6 SEC (9.7-13.0)
[2023-10-09 22:16] LABS: ACTIVATED PTT 34.6 SECONDS (25.2-36.5)
[2023-10-09] MEDS: WARFARIN NA 5 MG TABLET PO SCH (23:09)
[2023-10-10] MEDS: INSULIN SLIDING SCALE (NOVOLOG) 1 VIAL SQ SCH ×4 (06:37→23:01)
[2023-10-10 10:08] LABS: INR 1.1 (0.83-1.09); PROTHROMBIN TIME (PATIENT) 12.7 SEC (9.7-13.0)
[2023-10-10] MEDS: ACETAMINOPHEN 500 MG TABLET (FP) PO SCH ×2 (10:25→22:36)
[2023-10-10] MEDS: ENOXAPARIN NA (PORCINE) 80 MG/0.8 ML DISP.SYRIN SQ SCH ×2 (10:27→22:36)
[2023-10-10] MEDS: DULoxetine HCL 30 MG CAPSULE.DR PO SCH (10:27)
[2023-10-10] MEDS: PANTOPRAZOLE 40 MG TABLET PO SCH (10:27)
[2023-10-10] MEDS: AMINO ACIDS/PROTEIN HYDROLYS 30 ML LIQUID.PKT PO SCH (10:27)
[2023-10-10] MEDS: VALSARTAN 80 MG TABLET PO SCH ×2 (10:27→22:37)
[2023-10-10] MEDS: amLODIPine BESYLATE 5 MG TABLET (FP) PO SCH (10:27)
[2023-10-10] MEDS: NEBIVOLOL 10 MG TABLET (FP) PO SCH (10:27)
[2023-10-10] MEDS: REMDESIVIR 100 MG in SODIUM CHLORIDE 250 ML IVPB SCH (10:28)
[2023-10-10] MEDS: WARFARIN NA 5 MG TABLET PO SCH (18:06)
[2023-10-10] MEDS ORDERED: SENNOSIDES 8.6MG TABLET (FP) PO PRN (19:55)
[2023-10-11] MEDS: INSULIN SLIDING SCALE (NOVOLOG) 1 VIAL SQ SCH ×4 (06:06→21:45)
[2023-10-11] MEDS: AMINO ACIDS/PROTEIN HYDROLYS 30 ML LIQUID.PKT PO SCH (08:26)
[2023-10-11] MEDS: PANTOPRAZOLE 40 MG TABLET PO SCH (09:00)
[2023-10-11] MEDS: VALSARTAN 80 MG TABLET PO SCH ×2 (09:00→21:43)
[2023-10-11] MEDS: DULoxetine HCL 30 MG CAPSULE.DR PO SCH (09:00)
[2023-10-11] MEDS: amLODIPine BESYLATE 5 MG TABLET (FP) PO SCH (09:00)
[2023-10-11] MEDS: ACETAMINOPHEN 500 MG TABLET (FP) PO SCH ×2 (09:00→21:43)
[2023-10-11] MEDS: NEBIVOLOL 10 MG TABLET (FP) PO SCH (09:01)
[2023-10-11] MEDS: ENOXAPARIN NA (PORCINE) 80 MG/0.8 ML DISP.SYRIN SQ SCH ×2 (09:01→21:43)
[2023-10-11] MEDS: WARFARIN NA 5 MG TABLET PO SCH (17:08)
[2023-10-12] MEDS: INSULIN SLIDING SCALE (NOVOLOG) 1 VIAL SQ SCH ×4 (06:25→21:43)
[2023-10-12] MEDS: AMINO ACIDS/PROTEIN HYDROLYS 30 ML LIQUID.PKT PO SCH (09:00)
[2023-10-12 09:09] LABS: BASO % 0.6 % (0-2.0); EOS % 10.8 % (0-4.5); HEMATOCRIT 31.5 % (32.4-45.2); HEMOGLOBIN 10.1 GM/dL (10.7-15.3); INR 1.35 (0.83-1.09); LYMPH % 26.8 % (8-40); MEAN CELL VOLUME 84.3 fl (80-96); MONO % 8.2 % (3.8-10.2); NEUT % 53.6 % (42.8-82.8); PLATELET COUNT 509 10^3/uL (134-434); PROTHROMBIN TIME (PATIENT) 15.6 SEC (9.7-13.0); RBC 3.73 M/mm3 (3.60-5.2); RDW 17.1 % (11.6-15.6); WHITE BLOOD COUNT 6.9 K/mm3 (4.0-10.0)
[2023-10-12 09:25] LABS: POTASSIUM 3.9 mmol/L (3.5-5.1)
[2023-10-12 09:30] LABS: ALBUMIN 2.5 g/dl (3.4-5.0); BLOOD UREA NITROGEN 14.8 mg/dL (7-18)
[2023-10-12 09:35] LABS: CREATININE 0.5 mg/dL (0.55-1.3); TOT PROT 6.1 g/dl (6.4-8.2)
[2023-10-12 09:36] LABS: BILIRUBIN,TOTAL 0.3 mg/dL (0.2-1)
[2023-10-12 09:41] LABS: CALCIUM 9.6 mg/dL (8.5-10.1)
[2023-10-12] MEDS: ENOXAPARIN NA (PORCINE) 80 MG/0.8 ML DISP.SYRIN SQ SCH ×2 (09:49→21:40)
[2023-10-12] MEDS: ACETAMINOPHEN 500 MG TABLET (FP) PO SCH ×2 (09:50→21:40)
[2023-10-12] MEDS: amLODIPine BESYLATE 5 MG TABLET (FP) PO SCH (09:51)
[2023-10-12] MEDS: DULoxetine HCL 30 MG CAPSULE.DR PO SCH (09:51)
[2023-10-12] MEDS: PANTOPRAZOLE 40 MG TABLET PO SCH (09:51)
[2023-10-12] MEDS: VALSARTAN 80 MG TABLET PO SCH ×2 (09:51→21:43)
[2023-10-12] MEDS: NEBIVOLOL 10 MG TABLET (FP) PO SCH (09:51)
[2023-10-12] MEDS ORDERED: PNEUMOC 20-VAL CONJ-DIP CRM/PF 0.5 ML SYRINGE IM ONE (12:49)
[2023-10-12 14:22] VITALS: TEMP 97.9
[2023-10-12] MEDS: WARFARIN NA 5 MG TABLET PO SCH (17:07)
[2023-10-12 18:36] VITALS: RESP 18
[2023-10-13 06:25] VITALS: BP 135/33; PULSE 55
[2023-10-13] MEDS: INSULIN SLIDING SCALE (NOVOLOG) 1 VIAL SQ SCH ×2 (06:30→12:07)
[2023-10-13 09:42] LABS: INR 1.73 (0.83-1.09)
[2023-10-13] MEDS: ENOXAPARIN NA (PORCINE) 80 MG/0.8 ML DISP.SYRIN SQ SCH (09:56)
[2023-10-13] MEDS: DULoxetine HCL 30 MG CAPSULE.DR PO SCH (09:57)
[2023-10-13] MEDS: ACETAMINOPHEN 500 MG TABLET (FP) PO SCH (09:57)
[2023-10-13] MEDS: NEBIVOLOL 10 MG TABLET (FP) PO SCH (09:57)
[2023-10-13] MEDS: VALSARTAN 80 MG TABLET PO SCH (09:57)
[2023-10-13] MEDS: PANTOPRAZOLE 40 MG TABLET PO SCH (09:57)
[2023-10-13] MEDS: AMINO ACIDS/PROTEIN HYDROLYS 30 ML LIQUID.PKT PO SCH (09:57)
[2023-10-13] MEDS: amLODIPine BESYLATE 5 MG TABLET (FP) PO SCH (09:57)
== END 2023-10-13 15:00 | DRG 474 ==
LOC: JER 14:49 → SUPCPDRO 14:49 → JERBED 16:38 → J5S 10-01 14:33
PROVIDERS: ADMIT Internal Medicine; ATTEND Internal Medicine
PROC: 0Y6C0Z3 Detachment at Right Upper Leg, Low, Open Approach (ICD-10-PCS; principal; 2023-10-03 15:30)
PROC: XW033E5 Introduction of Remdesivir Anti-infective into Peripheral Vein, Percutaneous Approach, New Technology Group 5 (ICD-10-PCS; 2023-10-07)
DX: T87.43 Infection of amputation stump, right lower extremity (principal); U07.1 COVID-19; Y83.9 Surgical procedure, unspecified as the cause of abnormal reaction of the patient, or of later complication, without mention of misadventure at the time of the procedure; I10 Essential (primary) hypertension; E11.51 Type 2 diabetes mellitus with diabetic peripheral angiopathy without gangrene; E78.5 Hyperlipidemia, unspecified; L89.626 Pressure-induced deep tissue damage of left heel
CPT/HCPCS: 0241U-QW; 36415; 73562-TC-RT-FY; 80048; 80053; 82962; 83605; 83735; 85025; 85610; 85651; 85730; 86140; 87040; 87070; 87205; 87635; 88307-TC; 88311-TC; 93005; 93010; 94760; 97116-GP; 97162-GP; 99285-25; J0248; J1644